=== PATIENT | female | born 1955 | race Caucasian/White ===

== ENCOUNTER 2016-12-18 10:55 | Inpatient (IN) | payer MEDICAID ==
[~2016-12-18] VITALS: Ht 152.4 cm; Wt 124.7 kg
[2016-12-18] MEDS ORDERED: ACETAMINOPHEN 325MG TABLET PO ONE (13:30)
[2016-12-18] MEDS ORDERED: SODIUM CHLORIDE 0.9% 1,000 ML IV ONE (13:30)
[2016-12-18 14:32] LABS: BASOPHILS % 0.3 % (0.0-2.0); EOSINOPHILS % 5.2 % (0.0-5.0); HEMATOCRIT. 34.2 % (36.0-48.0); HEMOGLOBIN. 11.2 g/dL (12.0-16.0); LYMPHOCYTES % 25.2 % (20.0-50.0); MEAN CORPUSCULAR VOLUME 85.4 fL (81.0-99.0); MEAN PLATELET VOLUME 8.4 fl (7.4-10.4); NEUTROPHILS % 60.3 % (40.0-76.0); PLATELET 166 x1000/uL (130-400); RED CELL DISTRIBUTION WIDTH 15.9 % (11.6-14.6)
[2016-12-18 14:40] LABS: CHLORIDE 107 mEq/L (98-107)
[2016-12-18 14:49] LABS: CARBON DIOXIDE 28 mEq/L (21-32)
[2016-12-18 14:51] LABS: INR 1.1
[2016-12-18] MEDS ORDERED: LORAZEPAM 2MG/ML CPJ IV ONE (15:30)
[2016-12-18] MEDS ORDERED: MORPHINE SULFATE 2 MG/ML CPJ (NOT FOR IM USE) IV ONE (15:30)
[2016-12-18] MEDS ORDERED: IPRATROPIUM/ALBUTEROL 0.5-3(2.5)MG/3ML NEB INH PRN (16:00)
[2016-12-18] MEDS ORDERED: MAGNESIUM/ALUMINUM HYDROXIDE/SIMETHICONE 30ML UDC PO PRN (16:00)
[2016-12-18] MEDS ORDERED: GUAIFENESIN 200MG/10ML SUGAR FREE UDC PO PRN (16:00)
[2016-12-18] MEDS ORDERED: ENOXAPARIN 40MG/0.4ML SYR SUBCUT SCH (16:00)
[2016-12-18] MEDS ORDERED: NA PHOS,M-B/NA PHOS,DI-BA ENEMA 118ML PR PRN (16:00)
[2016-12-18] MEDS ORDERED: VANCOMYCIN 1 G PREMIX 200 ML IV SCH (16:00)
[2016-12-18] MEDS ORDERED: TRAMADOL 50MG TABLET PO PRN (16:00)
[2016-12-18] MEDS ORDERED: NITROGLYCERIN 0.4MG TABLET SL SL PRN (16:00)
[2016-12-18] MEDS ORDERED: LORAZEPAM 2MG/ML CPJ IV PRN (16:00)
[2016-12-18] MEDS ORDERED: DEXTROSE 50% WATER 50ML SYRINGE IV PRN (16:00)
[2016-12-18] MEDS ORDERED: CLONIDINE 0.1MG TABLET PO PRN (16:00)
[2016-12-18] MEDS ORDERED: PIPERACILLIN/TAZ 3.375G PREMIX 50 ML IV SCH (16:00)
[2016-12-18] MEDS ORDERED: DIPHENHYDRAMINE 50MG/ML VIAL IV PRN (16:00)
[2016-12-18] MEDS ORDERED: DOCUSATE SODIUM 100MG CAPSULE PO PRN (16:00)
[2016-12-18] MEDS ORDERED: ONDANSETRON HCL 4MG/2ML VIAL IV PRN (16:00)
[2016-12-18] MEDS ORDERED: ACETAMINOPHEN 325MG TABLET PO PRN (16:00)
[2016-12-18] MEDS: BLOOD SUGAR DIAGNOSTIC STRIP TEST SCH ×2 (17:00→21:00)
[2016-12-18] MEDS ORDERED: POTASSIUM CHLORIDE 20MEQ TABLET SR PO NR (17:06)
[2016-12-18] MEDS ORDERED: PIPERACILLIN/TAZ 3.375G PREMIX 50 ML IV NR (17:08)
[2016-12-18] MEDS ORDERED: ENOXAPARIN 40MG/0.4ML SYR SUBCUT NR (17:15)
[2016-12-18] MEDS ORDERED: VANCOMYCIN 2,000 MG in DEXT 5% WATER 500 ML IV NR (17:15)
[2016-12-18] MEDS: LISINOPRIL 20MG TABLET PO SCH (17:34)
[2016-12-18] MEDS: METOPROLOL TARTRATE 25MG TABLET PO SCH (17:36)
[2016-12-18] MEDS: INSULIN LISPRO 100 UNITS/ML SUBCUT SCH ×2 (18:20→21:00)
[2016-12-18] MEDS: KETOROLAC 15MG/ML VIAL IV PRN (21:18)
[2016-12-19] MEDS ORDERED: ZOLPIDEM TARTRATE 5MG TABLET PO PRN (00:51)
[2016-12-19 01:00] VITALS: BP 124/64
[2016-12-19] MEDS ORDERED: PIPERACILLIN/TAZ 3.375G PREMIX 50 ML IV SCH (02:00)
[2016-12-19 04:00] VITALS: BP 136/73
[2016-12-19] MEDS ORDERED: ASCO500C6 PO (07:16)
[2016-12-19] MEDS ORDERED: DILT120C11 PO (07:18)
[2016-12-19] MEDS ORDERED: DUONEB3 ML INH (07:18)
[2016-12-19] MEDS ORDERED: PROT40 PO (07:18)
[2016-12-19] MEDS ORDERED: LEVVL SQ (07:19)
[2016-12-19] MEDS: INSULIN LISPRO 100 UNITS/ML SUBCUT SCH ×2 (07:40→12:40)
[2016-12-19] MEDS: BLOOD SUGAR DIAGNOSTIC STRIP TEST SCH ×2 (07:46→11:41)
[2016-12-19 08:00] VITALS: BP 163/75
[2016-12-19] MEDS: LISINOPRIL 20MG TABLET PO SCH (08:25)
[2016-12-19] MEDS: METOPROLOL TARTRATE 25MG TABLET PO SCH (08:26)
[2016-12-19] MEDS: NYSTATIN POWDER 15GM TOP SCH ×4 (08:26→17:00)
[2016-12-19] MEDS: KETOROLAC 15MG/ML VIAL IV PRN (08:36)
[2016-12-19] MEDS ORDERED: FAMOTIDINE 20MG/2ML VIAL IV SCH (09:00)
[2016-12-19] MEDS ORDERED: ENOXAPARIN 40MG/0.4ML SYR SUBCUT SCH ×2 (09:00)
[2016-12-19] MEDS ORDERED: VANCOMYCIN 1500MG in DEXTROSE 5% WATER 250ML IV SCH (09:00)
[2016-12-19] MEDS ORDERED: ZINC SULFATE 220 MG ( 50 ) CAPSULE PO SCH (09:00)
[2016-12-19 09:54] VITALS: BP 143/75
[2016-12-19 12:00] VITALS: BP 136/72
[2016-12-19 15:36] VITALS: BP 136/72
== END 2016-12-19 19:10 | DRG 383 ==
LOC: ER 11:38 → EDBEDREQSVC 17:02 → EDBEDREQTM 17:02 → EDBEDREQ 17:02 → ENRESERV 19:56 → CANRESERV 19:56 → ENRESERV 22:28 → 8WST 23:25
PROVIDERS: ADMIT Internal Medicine; ATTEND Internal Medicine
DX: L03.116 Cellulitis of left lower limb (principal); E44.0 Moderate protein-calorie malnutrition; L03.313 Cellulitis of chest wall; Z68.43 Body mass index [BMI] 50.0-59.9, adult; I10 Essential (primary) hypertension; L03.111 Cellulitis of right axilla; E11.9 Type 2 diabetes mellitus without complications; J44.9 Chronic obstructive pulmonary disease, unspecified; L03.115 Cellulitis of right lower limb; Z88.6 Allergy status to analgesic agent; E66.01 Morbid (severe) obesity due to excess calories; D63.8 Anemia in other chronic diseases classified elsewhere; I87.8 Other specified disorders of veins; E87.6 Hypokalemia; Z91.81 History of falling
CPT/HCPCS: 36415; 71010; 80053; 82962; 83036; 83605; 83880; 85025; 85610; 87040; 93005; 93970; 94640; 96361; 96365; 96367; 96375; 99285; J1200; J1650; J1885; J2060; J2270; J2405; J2543; J3370; J3490; J7030; J7040; J7060; J7620

== ENCOUNTER 2017-01-21 14:25 | Inpatient (IN) | payer MEDICAID ==
[~2017-01-21] VITALS: Ht 162.6 cm; Wt 117.0 kg
[~2017-01-21 14:25] MED LIST: ASCO500C6 PO; DILT120C11 PO; DUONEB3 ML INH; LEVVL SQ; PROT40 PO
[2017-01-21] MEDS ORDERED: SODIUM CHLORIDE 0.9% 1,000 ML IV ONE (18:30)
[2017-01-21] MEDS ORDERED: ONDANSETRON HCL 4MG/2ML VIAL IV STA (18:30)
[2017-01-21] MEDS ORDERED: MORPHINE SULFATE 4 MG/ML CPJ (NOT FOR IM USE) IV STA (18:50)
[2017-01-21 19:04] LABS: BASOPHILS % 0.9 % (0.0-2.0); EOSINOPHILS % 2.9 % (0.0-5.0); HEMATOCRIT. 38.9 % (36.0-48.0); HEMOGLOBIN. 12.6 g/dL (12.0-16.0); LYMPHOCYTES % 19.1 % (20.0-50.0); MEAN CORPUSCULAR HEMOGLOBIN 28.1 pg (28.0-32.0); MEAN CORPUSCULAR VOLUME 86.6 fL (81.0-99.0); MEAN PLATELET VOLUME 8.7 fl (7.4-10.4); MONOCYTES % 12.3 % (2.0-8.0); NEUTROPHILS % 64.8 % (40.0-76.0); PLATELET 106 x1000/uL (130-400); RED CELL DISTRIBUTION WIDTH 16.3 % (11.6-14.6)
[2017-01-21 19:12] LABS: CARBON DIOXIDE 30 mEq/L (21-32); CHLORIDE 105 mEq/L (98-107)
[2017-01-21] MEDS ORDERED: MORPHINE SULFATE 2 MG/ML CPJ (NOT FOR IM USE) IV NR (20:53)
[2017-01-21 21:20] LABS: CLARITY URINE CLOUDY (CLEAR); COLOR URINE DARK YELLOW (YELLOW); GLUCOSE URINE NEGATIVE (NEGATIVE); KETONES URINE TRACE (NEGATIVE); LEUKOCYTE ESTERASE URINE TRACE (NEGATIVE); NITRITE URINE POSITIVE (NEGATIVE); OCCULT BLOOD URINE NEGATIVE (NEGATIVE); PROTEIN URINE 4+ (NEGATIVE); SPECIFIC GRAVITY URINE 1.033 (1.005-1.030)
[2017-01-21] MEDS ORDERED: ENOXAPARIN 40MG/0.4ML SYR SUBCUT SCH (22:00)
[2017-01-21] MEDS ORDERED: LORAZEPAM 2MG/ML CPJ IV PRN (22:00)
[2017-01-21] MEDS ORDERED: DOCUSATE SODIUM 100MG CAPSULE PO PRN (22:00)
[2017-01-21] MEDS ORDERED: GUAIFENESIN 200MG/10ML SUGAR FREE UDC PO PRN (22:00)
[2017-01-21] MEDS ORDERED: ACETAMINOPHEN 325MG TABLET PO PRN (22:00)
[2017-01-21] MEDS ORDERED: MAGNESIUM/ALUMINUM HYDROXIDE/SIMETHICONE 30ML UDC PO PRN (22:00)
[2017-01-21] MEDS ORDERED: CLONIDINE 0.1MG TABLET PO PRN (22:00)
[2017-01-21] MEDS ORDERED: NITROGLYCERIN 0.4MG TABLET SL SL PRN (22:00)
[2017-01-21] MEDS ORDERED: IPRATROPIUM/ALBUTEROL 0.5-3(2.5)MG/3ML NEB INH PRN (22:00)
[2017-01-21] MEDS ORDERED: LEVOFLOXACIN 500MG PREMIX 100 ML IV SCH (22:00)
[2017-01-21] MEDS ORDERED: ONDANSETRON HCL 4MG/2ML VIAL IV PRN (22:00)
[2017-01-21] MEDS ORDERED: DIPHENHYDRAMINE 50MG/ML VIAL IV PRN (22:00)
[2017-01-21] MEDS ORDERED: TRAMADOL 50MG TABLET PO PRN (22:21)
[2017-01-21] MEDS ORDERED: KETOROLAC 15MG/ML VIAL IV PRN (22:30)
[2017-01-21] MEDS ORDERED: NA PHOS,M-B/NA PHOS,DI-BA ENEMA 118ML PR PRN (22:30)
[2017-01-21] MEDS ORDERED: ZOLPIDEM TARTRATE 5MG TABLET PO PRN (22:30)
[2017-01-22] MEDS ORDERED: DEXTROSE 50% WATER 50ML SYRINGE IV PRN (00:29)
[2017-01-22 02:00] VITALS: BP 149/86
[2017-01-22 04:00] VITALS: BP 142/74
[2017-01-22] MEDS ORDERED: LEVOFLOXACIN 500MG PREMIX 100 ML IV SCH (07:00)
[2017-01-22] MEDS ORDERED: KETOROLAC 30MG/ML VIAL ONE (07:14)
[2017-01-22] MEDS: INSULIN LISPRO 100 UNITS/ML SUBCUT SCH ×4 (07:50→21:00)
[2017-01-22 08:00] VITALS: BP 146/87
[2017-01-22] MEDS ORDERED: CEFTRIAXONE 1 G PREMIX 50 ML IV SCH ×4 (08:00→10:00)
[2017-01-22] MEDS ORDERED: INSULIN LISPRO 100 UNITS/ML SUBCUT SCH (08:20)
[2017-01-22] MEDS ORDERED: LISINOPRIL 20MG TABLET PO SCH (09:00)
[2017-01-22] MEDS ORDERED: ENOXAPARIN 40MG/0.4ML SYR SUBCUT SCH (09:00)
[2017-01-22] MEDS ORDERED: BLOOD SUGAR DIAGNOSTIC STRIP TEST SCH (09:00)
[2017-01-22 10:30] LABS: *AMPHETAMINES SCREEN URINE NEGATIVE (NEGATIVE); *BARBITURATES SCREEN URINE NEGATIVE (NEGATIVE); *BENZODIAZEPINES SCREEN URINE NEGATIVE (NEGATIVE); *COCAINE SCREEN URINE NEGATIVE (NEGATIVE); CANNABINOID URINE SCREEN NEGATIVE (NEGATIVE); METHADONE URINE SCREEN NEGATIVE (NEGATIVE); OPIATES URINE SCREEN NEGATIVE (NEGATIVE); PHENCYCLIDINE URINE SCREEN NEGATIVE (NEGATIVE)
[2017-01-22 12:00] VITALS: BP 158/82
[2017-01-22] MEDS: BLOOD SUGAR DIAGNOSTIC STRIP TEST SCH ×3 (12:47→21:00)
[2017-01-22] MEDS: TRAMADOL 50MG TABLET PO PRN ×2 (13:10→21:21)
[2017-01-22] MEDS ORDERED: HYDROCODONE/ACETAMINOPHEN 5/325MG TABLET PO PRN (13:15)
[2017-01-22 16:00] VITALS: BP 157/82
[2017-01-22 20:00] VITALS: BP 130/61
[2017-01-22] MEDS ORDERED: NITROFURANTOIN 100MG M/M CAPSULE PO SCH (21:00)
[2017-01-23] VITALS: BP 134/70
[2017-01-23] MEDS: BLOOD SUGAR DIAGNOSTIC STRIP TEST SCH ×3 (07:20→17:20)
[2017-01-23] MEDS: INSULIN LISPRO 100 UNITS/ML SUBCUT SCH ×3 (07:50→17:41)
[2017-01-23 08:00] VITALS: BP 144/90
[2017-01-23] MEDS ORDERED: LISINOPRIL 20MG TABLET PO SCH (09:00)
[2017-01-23] MEDS ORDERED: CEFTRIAXONE 1 G PREMIX 50 ML IV SCH (10:00)
[2017-01-23] MEDS ORDERED: LEVOFLOXACIN 500MG TABLET PO SCH (11:00)
[2017-01-23 12:00] VITALS: BP 144/90
[2017-01-23] MEDS: TRAMADOL 50MG TABLET PO PRN (15:48)
[2017-01-23 16:00] VITALS: BP 181/92
[2017-01-23 16:21] VITALS: BP 144/90
== END 2017-01-23 19:25 | DRG 463 ==
LOC: ER 14:30 → 6EST 21:58 → ENRESERV 22:52 → ER 01-22 01:00
PROVIDERS: ADMIT Internal Medicine; ATTEND Internal Medicine
DX: N39.0 Urinary tract infection, site not specified (principal); E44.0 Moderate protein-calorie malnutrition; E66.01 Morbid (severe) obesity due to excess calories; N64.4 Mastodynia; E11.9 Type 2 diabetes mellitus without complications; I10 Essential (primary) hypertension; J44.9 Chronic obstructive pulmonary disease, unspecified; Z68.41 Body mass index [BMI] 40.0-44.9, adult; Z88.5 Allergy status to narcotic agent; Z79.4 Long term (current) use of insulin; Z79.899 Other long term (current) drug therapy; Z86.718 Personal history of other venous thrombosis and embolism; Z85.9 Personal history of malignant neoplasm, unspecified
CPT/HCPCS: 36415; 80053; 80305; 81001; 82962; 85025; 96361; 96374; 99285; C1893; J0696; J1650; J1885; J1956; J2270; J2405; J7030; J7050

== ENCOUNTER 2017-03-17 16:48 | Inpatient (IN) | payer MEDICAID ==
[~2017-03-17] VITALS: Ht 160 cm; Wt 127.0 kg
[2017-03-17] MEDS ORDERED: ALBUTEROL (0.083%) 2.5MG/3ML NEB HHN STA (18:02)
[2017-03-17] MEDS ORDERED: IPRATROPIUM BROMIDE (0.02%) 0.5MG/2.5ML NEB HHN STA (18:02)
[2017-03-17] MEDS ORDERED: METHYLPREDNISOLONE SOD SUCC 125 MG/2 ML VIAL IV STA (18:02)
[2017-03-17] MEDS ORDERED: MAGNESIUM 2 G PREMIX 50 ML IV ONE (18:15)
[2017-03-17 19:11] LABS: BASOPHILS % 0.7 % (0.0-2.0); EOSINOPHILS % 1.9 % (0.0-5.0); HEMATOCRIT. 32.6 % (36.0-48.0); HEMOGLOBIN. 10.4 g/dL (12.0-16.0); LYMPHOCYTES % 11.5 % (20.0-50.0); MEAN CORPUSCULAR HEMOGLOBIN 27.3 pg (28.0-32.0); MEAN CORPUSCULAR VOLUME 85.2 fL (81.0-99.0); MEAN PLATELET VOLUME 7.9 fl (7.4-10.4); MONOCYTES % 8.6 % (2.0-8.0); NEUTROPHILS % 77.3 % (40.0-76.0); PLATELET 160 x1000/uL (130-400); RED BLOOD CELL COUNT 3.83 mill/uL (4.2-5.4); RED CELL DISTRIBUTION WIDTH 17.7 % (11.6-14.6)
[2017-03-17 19:15] LABS: CHLORIDE 104 mEq/L (98-107); INR 1.5; PROTHROMBIN TIME 15.1 sec (9.4-11.6)
[2017-03-17 19:19] LABS: CARBON DIOXIDE 31 mEq/L (21-32)
[2017-03-17 19:25] LABS: TROPONIN I < 0.02 ng/mL (0.00-0.04)
[2017-03-17 19:28] LABS: BG BASE EXCESS 2.2 mmol/L (-2.0-2.0); BG BILEVEL POS AIRWAY PRESSURE 15/5; BG CARBOXYHEMOGLOBIN 0.2 % (0.5-1.5); BG DEOXYHEMOGLOBIN 19.6 % (0.0-5.0); BG FRACTION INSPIRED OXYGEN 40; BG HCO3 ACT 29.3 mmol/L (22.0-26.0); BG METHEMOGLOBIN 0.6 % (0.0-1.5); BG OXYGEN SATURATION 80.2 % (92.0-98.5); BG OXYHEMOGLOBIN 79.6 % (94.0-97.0); BG PCO2 58.4 mmHg (35.0-45.0); BG PH 7.319 (7.350-7.450); BG PO2 49.9 mmHg (75.0-100.0); BG SAMPLE SITE RIGHT RADIAL; BG TOTAL HEMOGLOBIN 11.2 g/dL (12.0-18.0); BG VENT MODE MASK - BIPAP; BG VENT RATE 20 set
[2017-03-17] MEDS ORDERED: PIPERACILLIN/TAZ 3.375G PREMIX 50 ML IV ONE (20:00)
[2017-03-17] MEDS ORDERED: MAGNESIUM/ALUMINUM HYDROXIDE/SIMETHICONE 30ML UDC PO PRN (20:30)
[2017-03-17] MEDS ORDERED: DOCUSATE SODIUM 100MG CAPSULE PO PRN (20:30)
[2017-03-17] MEDS ORDERED: ENOXAPARIN 40MG/0.4ML SYR SUBCUT SCH (20:30)
[2017-03-17] MEDS ORDERED: ONDANSETRON HCL 4MG/2ML VIAL IV PRN (20:30)
[2017-03-17] MEDS ORDERED: NA PHOS,M-B/NA PHOS,DI-BA ENEMA 118ML PR PRN (20:30)
[2017-03-17] MEDS ORDERED: ACET-2178 PO (21:49)
[2017-03-17] MEDS ORDERED: HYDR-4133 PO (21:49)
[2017-03-17] MEDS ORDERED: TRAM50TA3 PO (21:49)
[2017-03-17 23:03] VITALS: BP 171/95
[2017-03-17 23:25] VITALS: BP 171/95
[2017-03-18] VITALS (13 sets, daily range): BP systolic 120–173; BP diastolic 53–101
[2017-03-18] MEDS ORDERED: LEVOFLOXACIN 500MG PREMIX 100 ML IV SCH
[2017-03-18 02:38] LABS: CREATINE KINASE 26 IU/L (26-192); TROPONIN I < 0.02 ng/mL (0.00-0.04)
[2017-03-18] MEDS: CLONIDINE 0.1MG TABLET PO PRN (06:53)
[2017-03-18 08:00] LABS: CARBON DIOXIDE 29 mEq/L (21-32); CHLORIDE 104 mEq/L (98-107); CREATINE KINASE 23 IU/L (26-192)
[2017-03-18 08:02] LABS: CREATINE KINASE MB FRACTION 0.8 ng/mL (0.5-3.6); TROPONIN I < 0.02 ng/mL (0.00-0.04)
[2017-03-18 08:09] LABS: MEAN CORPUSCULAR HEMOGLOBIN 27.3 pg (28.0-32.0); MEAN CORPUSCULAR VOLUME 84.3 fL (81.0-99.0); MEAN PLATELET VOLUME 8.2 fl (7.4-10.4); PLATELET 156 x1000/uL (130-400); RED BLOOD CELL COUNT 4.03 mill/uL (4.2-5.4); RED CELL DISTRIBUTION WIDTH 17.4 % (11.6-14.6)
[2017-03-18] MEDS: IPRATROPIUM/ALBUTEROL 0.5-3(2.5)MG/3ML NEB INH SCH ×3 (08:12→20:51)
[2017-03-18] MEDS: ENOXAPARIN 40MG/0.4ML SYR SUBCUT SCH ×2 (08:38→20:25)
[2017-03-18] MEDS: AMLODIPINE 10MG TABLET PO SCH ×2 (08:39→08:42)
[2017-03-18] MEDS ORDERED: FUROSEMIDE 40MG/4ML VIAL IV SCH (09:00)
[2017-03-18] MEDS: MORPHINE SULFATE 2 MG/ML CPJ (NOT FOR IM USE) IV PRN ×3 (10:13→18:07)
[2017-03-18] MEDS: METHYLPREDNISOLONE SOD SUCC 125 MG/2 ML VIAL IV SCH ×2 (12:48→20:18)
[2017-03-18 12:54] LABS: BG BASE EXCESS 2.5 mmol/L (-2.0-2.0); BG BILEVEL POS AIRWAY PRESSURE 15/5; BG CARBOXYHEMOGLOBIN 0.3 % (0.5-1.5); BG DEOXYHEMOGLOBIN 3.3 % (0.0-5.0); BG FRACTION INSPIRED OXYGEN 40; BG HCO3 ACT 30.5 mmol/L (22.0-26.0); BG METHEMOGLOBIN 0.2 % (0.0-1.5); BG OXYGEN SATURATION 96.7 % (92.0-98.5); BG OXYHEMOGLOBIN 96.2 % (94.0-97.0); BG PCO2 64.8 mmHg (35.0-45.0); BG PO2 96.8 mmHg (75.0-100.0); BG SAMPLE SITE LEFT RADIAL; BG TOTAL HEMOGLOBIN 11.5 g/dL (12.0-18.0); BG VENT MODE MASK - BIPAP; BG VENT RATE 14 set
[2017-03-18] MEDS: BUDESONIDE 0.5MG/2ML NEB HHN SCH ×2 (13:15→20:51)
[2017-03-18] MEDS ORDERED: DEXTROSE 50% WATER 50ML SYRINGE IV PRN ×2 (14:15→15:15)
[2017-03-18] MEDS ORDERED: VANCOMYCIN 2,000 MG in DEXT 5% WATER 500 ML IV SCH (15:00)
[2017-03-18 15:15] LABS: CLARITY URINE CLEAR (CLEAR); COLOR URINE YELLOW (YELLOW); KETONES URINE NEGATIVE (NEGATIVE); LEUKOCYTE ESTERASE URINE NEGATIVE (NEGATIVE); NITRITE URINE NEGATIVE (NEGATIVE); OCCULT BLOOD URINE NEGATIVE (NEGATIVE); PROTEIN URINE 1+ (NEGATIVE); SPECIFIC GRAVITY URINE 1.014 (1.005-1.030); UROBILINOGEN URINE 0.2 E.U./dL (0.2-1.0)
[2017-03-18] MEDS: PIPERACILLIN/TAZ 3.375G PREMIX 50 ML IV SCH ×2 (15:26→20:18)
[2017-03-18] MEDS ORDERED: VANCOMYCIN 2,000 MG in DEXT 5% WATER 500 ML IV NR (15:30)
[2017-03-18 16:19] LABS: PLATELET ESTIMATE NORMAL
[2017-03-18] MEDS: BLOOD SUGAR DIAGNOSTIC STRIP TEST SCH ×2 (17:12→20:25)
[2017-03-18] MEDS: FUROSEMIDE 40MG/4ML VIAL IVP SCH (17:14)
[2017-03-18] MEDS: INSULIN LISPRO 100 UNITS/ML SUBCUT SCH ×2 (17:18→20:29)
[2017-03-18 17:22] LABS: AMMONIA 90 uMol/L (<32)
[2017-03-18 17:45] LABS: HEPATITIS B SURFACE ANTIGEN NEGATIVE
[2017-03-18] MEDS ORDERED: INSULIN LISPRO 100 UNITS/ML SUBCUT SCH (18:00)
[2017-03-18 18:13] LABS: HEPATITIS B CORE AB IGM NEGATIVE
[2017-03-18 18:14] LABS: HEPATITIS A AB IGM NEGATIVE (NEGATIVE)
[2017-03-19] VITALS (11 sets, daily range): BP systolic 132–171; BP diastolic 70–93
[2017-03-19] MEDS: MORPHINE SULFATE 2 MG/ML CPJ (NOT FOR IM USE) IV PRN ×2 (00:24→20:23)
[2017-03-19] MEDS: IPRATROPIUM/ALBUTEROL 0.5-3(2.5)MG/3ML NEB INH SCH ×4 (01:30→21:08)
[2017-03-19] MEDS: PIPERACILLIN/TAZ 3.375G PREMIX 50 ML IV SCH ×4 (01:41→20:20)
[2017-03-19] MEDS ORDERED: VANCOMYCIN 1 G PREMIX 200 ML IV SCH (02:00)
[2017-03-19] MEDS: VANCOMYCIN 1250MG in DEXTROSE 5% WATER 250ML IV SCH ×2 (02:18→17:28)
[2017-03-19] MEDS: METHYLPREDNISOLONE SOD SUCC 125 MG/2 ML VIAL IV SCH ×3 (04:10→20:32)
[2017-03-19 06:39] LABS: BG BASE EXCESS 3.9 mmol/L (-2.0-2.0); BG BILEVEL POS AIRWAY PRESSURE 15/5; BG CARBOXYHEMOGLOBIN 0.3 % (0.5-1.5); BG DEOXYHEMOGLOBIN 3.6 % (0.0-5.0); BG FRACTION INSPIRED OXYGEN 35; BG METHEMOGLOBIN 0.5 % (0.0-1.5); BG OXYGEN SATURATION 96.4 % (92.0-98.5); BG OXYHEMOGLOBIN 95.6 % (94.0-97.0); BG PCO2 52.4 mmHg (35.0-45.0); BG PH 7.376 (7.350-7.450); BG PO2 88.3 mmHg (75.0-100.0); BG SAMPLE SITE LEFT RADIAL; BG TOTAL HEMOGLOBIN 11.1 g/dL (12.0-18.0); BG VENT MODE MASK - BIPAP
[2017-03-19] MEDS: CLONIDINE 0.1MG TABLET PO PRN (06:50)
[2017-03-19] MEDS: BLOOD SUGAR DIAGNOSTIC STRIP TEST SCH ×4 (07:30→20:23)
[2017-03-19] MEDS: BUDESONIDE 0.5MG/2ML NEB HHN SCH ×2 (07:53→21:08)
[2017-03-19] MEDS: INSULIN LISPRO 100 UNITS/ML SUBCUT SCH ×4 (08:00→22:03)
[2017-03-19] MEDS: FUROSEMIDE 40MG/4ML VIAL IVP SCH ×2 (10:28→17:29)
[2017-03-19] MEDS: ENOXAPARIN 40MG/0.4ML SYR SUBCUT SCH (10:28)
[2017-03-19] MEDS: AMLODIPINE 10MG TABLET PO SCH (10:29)
[2017-03-19 13:18] LABS: HEMATOCRIT. 33.7 % (36.0-48.0); HEMOGLOBIN. 10.9 g/dL (12.0-16.0); MEAN CORPUSCULAR HEMOGLOBIN 27.2 pg (28.0-32.0); MEAN PLATELET VOLUME 7.5 fl (7.4-10.4); PLATELET 139 x1000/uL (130-400); RED BLOOD CELL COUNT 4.01 mill/uL (4.2-5.4); RED CELL DISTRIBUTION WIDTH 17.8 % (11.6-14.6)
[2017-03-19 13:26] LABS: CHLORIDE 102 mEq/L (98-107)
[2017-03-19 13:31] LABS: CARBON DIOXIDE 30 mEq/L (21-32)
[2017-03-19 14:20] LABS: PLATELET ESTIMATE NORMAL
[2017-03-19 16:49] LABS: INR 1.4; PROTHROMBIN TIME 14.8 sec (9.4-11.6)
[2017-03-19] MEDS: LACTULOSE 20G/30ML UDC PO SCH (17:29)
[2017-03-19] MEDS: ACETAMINOPHEN 325MG TABLET PO PRN (17:29)
[2017-03-19] MEDS: MICONAZOLE NITRATE 2% OINT 71GM TOP SCH (20:24)
[2017-03-20] VITALS (12 sets, daily range): BP systolic 150–173; BP diastolic 72–108
[2017-03-20] MEDS: IPRATROPIUM/ALBUTEROL 0.5-3(2.5)MG/3ML NEB INH SCH ×4 (01:22→20:58)
[2017-03-20] MEDS: PIPERACILLIN/TAZ 3.375G PREMIX 50 ML IV SCH ×4 (03:32→21:38)
[2017-03-20] MEDS: VANCOMYCIN 1250MG in DEXTROSE 5% WATER 250ML IV SCH (03:54)
[2017-03-20] MEDS: MORPHINE SULFATE 2 MG/ML CPJ (NOT FOR IM USE) IV PRN ×2 (04:00→21:40)
[2017-03-20] MEDS: METHYLPREDNISOLONE SOD SUCC 125 MG/2 ML VIAL IV SCH (04:35)
[2017-03-20 06:25] LABS: HEMOGLOBIN. 11.5 g/dL (12.0-16.0); MEAN CORPUSCULAR HEMOGLOBIN 27.4 pg (28.0-32.0); MEAN CORPUSCULAR VOLUME 83.7 fL (81.0-99.0); MEAN PLATELET VOLUME 7.9 fl (7.4-10.4); PLATELET 135 x1000/uL (130-400); RED BLOOD CELL COUNT 4.18 mill/uL (4.2-5.4); RED CELL DISTRIBUTION WIDTH 17.7 % (11.6-14.6)
[2017-03-20] MEDS: FUROSEMIDE 40MG/4ML VIAL IVP SCH ×2 (06:27→17:45)
[2017-03-20] MEDS: BUDESONIDE 0.5MG/2ML NEB HHN SCH (07:34)
[2017-03-20 07:42] LABS: CHLORIDE 103 mEq/L (98-107)
[2017-03-20] MEDS: BLOOD SUGAR DIAGNOSTIC STRIP TEST SCH ×4 (07:51→21:40)
[2017-03-20 08:05] LABS: CARBON DIOXIDE 29 mEq/L (21-32)
[2017-03-20] MEDS: LACTULOSE 20G/30ML UDC PO SCH (11:18)
[2017-03-20] MEDS: MICONAZOLE NITRATE 2% OINT 71GM TOP SCH ×2 (11:19→21:38)
[2017-03-20] MEDS: AMLODIPINE 10MG TABLET PO SCH (11:19)
[2017-03-20] MEDS: INSULIN LISPRO 100 UNITS/ML SUBCUT SCH ×4 (11:27→22:04)
[2017-03-20] MEDS: ACETAMINOPHEN 325MG TABLET PO PRN (12:33)
[2017-03-20] MEDS: GUAIFENESIN 200MG/10ML SUGAR FREE UDC PO PRN (12:33)
[2017-03-20] MEDS: CLONIDINE 0.1MG TABLET PO PRN (12:34)
[2017-03-20 13:44] LABS: PLATELET ESTIMATE NORMAL
[2017-03-20] MEDS: METHYLPREDNISOLONE SOD SUCC 40 MG/ML VIAL IV SCH ×2 (14:48→21:37)
[2017-03-21] VITALS (12 sets, daily range): BP systolic 144–181; BP diastolic 68–98
[2017-03-21] MEDS: BUDESONIDE 0.5MG/2ML NEB HHN SCH ×3 (01:26→20:35)
[2017-03-21] MEDS: IPRATROPIUM/ALBUTEROL 0.5-3(2.5)MG/3ML NEB INH SCH ×4 (01:26→20:36)
[2017-03-21] MEDS: PIPERACILLIN/TAZ 3.375G PREMIX 50 ML IV SCH ×4 (01:57→20:39)
[2017-03-21] MEDS: CLONIDINE 0.1MG TABLET PO PRN (02:48)
[2017-03-21] MEDS: VANCOMYCIN 1500MG in DEXTROSE 5% WATER 250ML IV SCH (05:15)
[2017-03-21] MEDS: METHYLPREDNISOLONE SOD SUCC 40 MG/ML VIAL IV SCH (05:15)
[2017-03-21] MEDS: FUROSEMIDE 40MG/4ML VIAL IVP SCH ×2 (06:17→17:31)
[2017-03-21] MEDS: MORPHINE SULFATE 2 MG/ML CPJ (NOT FOR IM USE) IV PRN ×2 (06:37→12:31)
[2017-03-21] MEDS: BLOOD SUGAR DIAGNOSTIC STRIP TEST SCH ×4 (08:14→20:44)
[2017-03-21] MEDS: LACTULOSE 20G/30ML UDC PO SCH (08:32)
[2017-03-21] MEDS: AMLODIPINE 10MG TABLET PO SCH (08:33)
[2017-03-21] MEDS: INSULIN LISPRO 100 UNITS/ML SUBCUT SCH ×4 (08:34→20:53)
[2017-03-21] MEDS: MICONAZOLE NITRATE 2% OINT 71GM TOP SCH ×2 (08:35→20:39)
[2017-03-21] MEDS: PREDNISONE 20MG TABLET PO SCH (17:32)
[2017-03-22] VITALS (12 sets, daily range): BP systolic 134–183; BP diastolic 60–100
[2017-03-22] MEDS: VANCOMYCIN 1500MG in DEXTROSE 5% WATER 250ML IV SCH ×2 (00:17→17:39)
[2017-03-22] MEDS: IPRATROPIUM/ALBUTEROL 0.5-3(2.5)MG/3ML NEB INH SCH ×4 (01:13→21:40)
[2017-03-22] MEDS: PIPERACILLIN/TAZ 3.375G PREMIX 50 ML IV SCH ×4 (03:08→21:26)
[2017-03-22] MEDS: FUROSEMIDE 40MG/4ML VIAL IVP SCH ×2 (06:47→17:40)
[2017-03-22] MEDS: BLOOD SUGAR DIAGNOSTIC STRIP TEST SCH ×4 (07:20→21:28)
[2017-03-22] MEDS: INSULIN LISPRO 100 UNITS/ML SUBCUT SCH ×5 (07:20→21:41)
[2017-03-22] MEDS: BUDESONIDE 0.5MG/2ML NEB HHN SCH ×2 (08:23→21:42)
[2017-03-22] MEDS: LACTULOSE 20G/30ML UDC PO SCH (08:33)
[2017-03-22] MEDS: AMLODIPINE 10MG TABLET PO SCH (08:34)
[2017-03-22] MEDS: PREDNISONE 20MG TABLET PO SCH (08:34)
[2017-03-22] MEDS: MICONAZOLE NITRATE 2% OINT 71GM TOP SCH ×2 (08:37→21:27)
[2017-03-22] MEDS: CLONIDINE 0.1MG TABLET PO PRN (21:27)
[2017-03-22] MEDS: HYDROCODONE/ACETAMINOPHEN 10/325MG TABLET PO PRN (21:49)
[2017-03-23] VITALS (13 sets, daily range): BP systolic 140–199; BP diastolic 61–108
[2017-03-23] MEDS: PIPERACILLIN/TAZ 3.375G PREMIX 50 ML IV SCH ×4 (02:14→20:00)
[2017-03-23] MEDS: IPRATROPIUM/ALBUTEROL 0.5-3(2.5)MG/3ML NEB INH SCH ×4 (02:59→22:17)
[2017-03-23] MEDS: BLOOD SUGAR DIAGNOSTIC STRIP TEST SCH ×4 (07:32→21:00)
[2017-03-23] MEDS: FUROSEMIDE 40MG/4ML VIAL IVP SCH ×2 (07:35→16:23)
[2017-03-23 07:46] LABS: HEMATOCRIT. 35.4 % (36.0-48.0); HEMOGLOBIN. 11.1 g/dL (12.0-16.0); MEAN CORPUSCULAR HEMOGLOBIN 26.3 pg (28.0-32.0); MEAN CORPUSCULAR VOLUME 83.8 fL (81.0-99.0); MEAN PLATELET VOLUME 8.4 fl (7.4-10.4); PLATELET 103 x1000/uL (130-400); RED BLOOD CELL COUNT 4.23 mill/uL (4.2-5.4); RED CELL DISTRIBUTION WIDTH 17.5 % (11.6-14.6)
[2017-03-23] MEDS: INSULIN LISPRO 100 UNITS/ML SUBCUT SCH ×4 (08:00→22:04)
[2017-03-23] MEDS: LACTULOSE 20G/30ML UDC PO SCH (08:43)
[2017-03-23] MEDS: PREDNISONE 20MG TABLET PO SCH (08:43)
[2017-03-23] MEDS: AMLODIPINE 10MG TABLET PO SCH (08:44)
[2017-03-23] MEDS: HYDROCODONE/ACETAMINOPHEN 10/325MG TABLET PO PRN ×2 (08:51→16:23)
[2017-03-23] MEDS: CLONIDINE 0.1MG TABLET PO PRN (10:29)
[2017-03-23 11:09] LABS: CHLORIDE 99 mEq/L (98-107)
[2017-03-23 11:22] LABS: CARBON DIOXIDE 40 mEq/L (21-32)
[2017-03-23] MEDS: LOSARTAN POTASSIUM 25 MG TABLET PO SCH (11:33)
[2017-03-23] MEDS: VANCOMYCIN 1500MG in DEXTROSE 5% WATER 250ML IV SCH (11:35)
[2017-03-23] MEDS: BUDESONIDE 0.5MG/2ML NEB HHN SCH ×2 (13:30→22:17)
[2017-03-23] MEDS: HYDRALAZINE HCL 25MG TABLET PO SCH ×2 (13:41→21:47)
[2017-03-23] MEDS: MICONAZOLE NITRATE 2% OINT 71GM TOP SCH ×2 (16:28→21:53)
[2017-03-23 16:51] LABS: PLATELET ESTIMATE DECREASED
[2017-03-24] VITALS (13 sets, daily range): BP systolic 119–185; BP diastolic 51–99
[2017-03-24] MEDS: PIPERACILLIN/TAZ 3.375G PREMIX 50 ML IV SCH ×4 (02:00→20:18)
[2017-03-24] MEDS: CLONIDINE 0.1MG TABLET PO PRN ×2 (03:15→14:10)
[2017-03-24] MEDS: IPRATROPIUM/ALBUTEROL 0.5-3(2.5)MG/3ML NEB INH SCH ×4 (03:17→20:31)
[2017-03-24] MEDS: VANCOMYCIN 1500MG in DEXTROSE 5% WATER 250ML IV SCH ×2 (05:23→23:43)
[2017-03-24] MEDS: HYDRALAZINE HCL 25MG TABLET PO SCH ×3 (05:30→21:06)
[2017-03-24] MEDS: FUROSEMIDE 40MG/4ML VIAL IVP SCH ×2 (06:18→17:21)
[2017-03-24] MEDS: BUDESONIDE 0.5MG/2ML NEB HHN SCH ×2 (08:05→20:31)
[2017-03-24] MEDS: BLOOD SUGAR DIAGNOSTIC STRIP TEST SCH ×4 (08:09→21:00)
[2017-03-24] MEDS: LOSARTAN POTASSIUM 25 MG TABLET PO SCH (08:23)
[2017-03-24] MEDS: AMLODIPINE 10MG TABLET PO SCH (08:23)
[2017-03-24] MEDS: LACTULOSE 20G/30ML UDC PO SCH (08:23)
[2017-03-24] MEDS: PREDNISONE 20MG TABLET PO SCH (08:23)
[2017-03-24] MEDS: INSULIN LISPRO 100 UNITS/ML SUBCUT SCH ×4 (08:24→21:05)
[2017-03-24] MEDS: HYDROCODONE/ACETAMINOPHEN 10/325MG TABLET PO PRN ×2 (09:20→21:04)
[2017-03-24] MEDS: MICONAZOLE NITRATE 2% OINT 71GM TOP SCH (20:19)
[2017-03-25] VITALS (13 sets, daily range): BP systolic 108–143; BP diastolic 40–84
[2017-03-25] MEDS: PIPERACILLIN/TAZ 3.375G PREMIX 50 ML IV SCH ×3 (02:10→14:05)
[2017-03-25] MEDS: IPRATROPIUM/ALBUTEROL 0.5-3(2.5)MG/3ML NEB INH SCH ×4 (02:11→21:00)
[2017-03-25] MEDS: HYDRALAZINE HCL 25MG TABLET PO SCH ×3 (05:17→21:01)
[2017-03-25] MEDS: HYDROCODONE/ACETAMINOPHEN 10/325MG TABLET PO PRN ×2 (05:32→21:00)
[2017-03-25] MEDS: FUROSEMIDE 40MG/4ML VIAL IVP SCH ×2 (06:19→17:49)
[2017-03-25] MEDS: BLOOD SUGAR DIAGNOSTIC STRIP TEST SCH ×4 (07:48→20:48)
[2017-03-25] MEDS: INSULIN LISPRO 100 UNITS/ML SUBCUT SCH ×4 (08:00→20:58)
[2017-03-25] MEDS: LOSARTAN POTASSIUM 25 MG TABLET PO SCH (08:02)
[2017-03-25] MEDS: AMLODIPINE 10MG TABLET PO SCH (08:02)
[2017-03-25] MEDS: LACTULOSE 20G/30ML UDC PO SCH (08:03)
[2017-03-25] MEDS: PREDNISONE 20MG TABLET PO SCH (08:03)
[2017-03-25] MEDS: MICONAZOLE NITRATE 2% OINT 71GM TOP SCH ×2 (08:06→20:52)
[2017-03-25] MEDS: BUDESONIDE 0.5MG/2ML NEB HHN SCH (09:18)
[2017-03-26] VITALS (13 sets, daily range): BP systolic 95–156; BP diastolic 49–76
[2017-03-26] MEDS: IPRATROPIUM/ALBUTEROL 0.5-3(2.5)MG/3ML NEB INH SCH ×4 (02:12→20:29)
[2017-03-26] MEDS: HYDRALAZINE HCL 25MG TABLET PO SCH ×3 (05:51→21:10)
[2017-03-26] MEDS: FUROSEMIDE 40MG/4ML VIAL IVP SCH ×2 (06:25→16:23)
[2017-03-26] MEDS: BLOOD SUGAR DIAGNOSTIC STRIP TEST SCH ×4 (08:29→21:00)
[2017-03-26] MEDS: LACTULOSE 20G/30ML UDC PO SCH (08:36)
[2017-03-26] MEDS: PREDNISONE 20MG TABLET PO SCH (08:37)
[2017-03-26] MEDS: AMLODIPINE 10MG TABLET PO SCH (08:37)
[2017-03-26] MEDS: LOSARTAN POTASSIUM 25 MG TABLET PO SCH (08:41)
[2017-03-26] MEDS: HYDROCODONE/ACETAMINOPHEN 10/325MG TABLET PO PRN (08:42)
[2017-03-26] MEDS: INSULIN LISPRO 100 UNITS/ML SUBCUT SCH ×4 (08:45→21:19)
[2017-03-26] MEDS: MICONAZOLE NITRATE 2% OINT 71GM TOP SCH ×2 (08:57→21:20)
[2017-03-26 16:33] LABS: BG BASE EXCESS 7.1 mmol/L (-2.0-2.0); BG BILEVEL POS AIRWAY PRESSURE 15/5; BG CARBOXYHEMOGLOBIN 0.6 % (0.5-1.5); BG DEOXYHEMOGLOBIN 6.8 % (0.0-5.0); BG FRACTION INSPIRED OXYGEN 35; BG HCO3 ACT 32.4 mmol/L (22.0-26.0); BG METHEMOGLOBIN 0.5 % (0.0-1.5); BG OXYGEN SATURATION 93.1 % (92.0-98.5); BG OXYHEMOGLOBIN 92.1 % (94.0-97.0); BG PCO2 48.8 mmHg (35.0-45.0); BG PO2 69.4 mmHg (75.0-100.0); BG SAMPLE SITE RIGHT RADIAL; BG TOTAL HEMOGLOBIN 12.4 g/dL (12.0-18.0); BG VENT MODE MASK - BIPAP; BG VENT RATE 16 set
[2017-03-27] VITALS (12 sets, daily range): BP systolic 117–140; BP diastolic 46–80
[2017-03-27] MEDS: IPRATROPIUM/ALBUTEROL 0.5-3(2.5)MG/3ML NEB INH SCH ×2 (00:40→20:18)
[2017-03-27] MEDS: HYDRALAZINE HCL 25MG TABLET PO SCH ×3 (05:46→21:38)
[2017-03-27] MEDS: FUROSEMIDE 40MG/4ML VIAL IVP SCH ×2 (06:25→17:57)
[2017-03-27] MEDS: BLOOD SUGAR DIAGNOSTIC STRIP TEST SCH ×4 (07:46→21:54)
[2017-03-27] MEDS: INSULIN LISPRO 100 UNITS/ML SUBCUT SCH ×4 (08:00→22:09)
[2017-03-27] MEDS: GUAIFENESIN 200MG/10ML SUGAR FREE UDC PO PRN (09:16)
[2017-03-27] MEDS: LACTULOSE 20G/30ML UDC PO SCH (09:16)
[2017-03-27] MEDS: AMLODIPINE 10MG TABLET PO SCH (09:17)
[2017-03-27] MEDS: PREDNISONE 20MG TABLET PO SCH (09:17)
[2017-03-27] MEDS: LOSARTAN POTASSIUM 25 MG TABLET PO SCH (09:17)
[2017-03-27] MEDS: ACETAMINOPHEN 325MG TABLET PO PRN ×2 (09:18→20:51)
[2017-03-27] MEDS: MICONAZOLE NITRATE 2% OINT 71GM TOP SCH ×2 (09:22→21:55)
[2017-03-27] MEDS: HYDROCODONE/ACETAMINOPHEN 10/325MG TABLET PO PRN (10:51)
[2017-03-28] VITALS (13 sets, daily range): BP systolic 110–158; BP diastolic 45–82
[2017-03-28] MEDS: IPRATROPIUM/ALBUTEROL 0.5-3(2.5)MG/3ML NEB INH SCH ×4 (02:41→21:26)
[2017-03-28] MEDS: HYDRALAZINE HCL 25MG TABLET PO SCH ×3 (07:02→21:08)
[2017-03-28] MEDS: FUROSEMIDE 40MG/4ML VIAL IVP SCH ×2 (07:02→17:04)
[2017-03-28 07:19] LABS: CARBON DIOXIDE 37 mEq/L (21-32); CHLORIDE 96 mEq/L (98-107)
[2017-03-28 08:00] LABS: BG BASE EXCESS 12.8 mmol/L (-2.0-2.0); BG BILEVEL POS AIRWAY PRESSURE 15/5; BG CARBOXYHEMOGLOBIN 0.7 % (0.5-1.5); BG DEOXYHEMOGLOBIN 3.9 % (0.0-5.0); BG FRACTION INSPIRED OXYGEN 35; BG HCO3 ACT 38.1 mmol/L (22.0-26.0); BG METHEMOGLOBIN 0.1 % (0.0-1.5); BG OXYGEN SATURATION 96.1 % (92.0-98.5); BG OXYHEMOGLOBIN 95.3 % (94.0-97.0); BG PCO2 51.6 mmHg (35.0-45.0); BG PH 7.486 (7.350-7.450); BG PO2 79.9 mmHg (75.0-100.0); BG SAMPLE SITE LEFT RADIAL; BG TOTAL HEMOGLOBIN 12.1 g/dL (12.0-18.0); BG VENT MODE MASK - BIPAP
[2017-03-28] MEDS: INSULIN LISPRO 100 UNITS/ML SUBCUT SCH ×4 (08:00→21:12)
[2017-03-28] MEDS: AMLODIPINE 10MG TABLET PO SCH (08:24)
[2017-03-28] MEDS: PREDNISONE 20MG TABLET PO SCH (08:25)
[2017-03-28] MEDS: LACTULOSE 20G/30ML UDC PO SCH (08:25)
[2017-03-28] MEDS: LOSARTAN POTASSIUM 25 MG TABLET PO SCH (08:25)
[2017-03-28] MEDS: BLOOD SUGAR DIAGNOSTIC STRIP TEST SCH ×4 (08:25→21:11)
[2017-03-28] MEDS: MICONAZOLE NITRATE 2% OINT 71GM TOP SCH ×2 (08:27→21:10)
[2017-03-28] MEDS: ACETAMINOPHEN 325MG TABLET PO PRN ×2 (08:31→14:39)
[2017-03-29] VITALS (12 sets, daily range): BP systolic 117–154; BP diastolic 50–88
[2017-03-29] MEDS: IPRATROPIUM/ALBUTEROL 0.5-3(2.5)MG/3ML NEB INH SCH ×4 (02:08→21:08)
[2017-03-29 06:04] LABS: HEMATOCRIT. 35.4 % (36.0-48.0); HEMOGLOBIN. 11.2 g/dL (12.0-16.0); MEAN CORPUSCULAR HEMOGLOBIN 26.8 pg (28.0-32.0); MEAN CORPUSCULAR VOLUME 84.2 fL (81.0-99.0); MEAN PLATELET VOLUME 9.8 fl (7.4-10.4); PLATELET 160 x1000/uL (130-400); RED CELL DISTRIBUTION WIDTH 18.8 % (11.6-14.6)
[2017-03-29] MEDS: HYDRALAZINE HCL 25MG TABLET PO SCH ×3 (06:37→21:22)
[2017-03-29] MEDS: FUROSEMIDE 40MG/4ML VIAL IVP SCH (06:37)
[2017-03-29] MEDS: BLOOD SUGAR DIAGNOSTIC STRIP TEST SCH ×4 (07:58→21:25)
[2017-03-29] MEDS: INSULIN LISPRO 100 UNITS/ML SUBCUT SCH ×4 (08:00→21:23)
[2017-03-29] MEDS: LACTULOSE 20G/30ML UDC PO SCH (08:31)
[2017-03-29] MEDS: PREDNISONE 20MG TABLET PO SCH (08:31)
[2017-03-29] MEDS: AMLODIPINE 10MG TABLET PO SCH (08:33)
[2017-03-29] MEDS: LOSARTAN POTASSIUM 25 MG TABLET PO SCH (08:34)
[2017-03-29] MEDS: MICONAZOLE NITRATE 2% OINT 71GM TOP SCH ×2 (08:34→21:25)
[2017-03-29 09:08] LABS: BG BASE EXCESS 1.3 mmol/L (-2.0-2.0); BG BILEVEL POS AIRWAY PRESSURE 15/5; BG CARBOXYHEMOGLOBIN 0.2 % (0.5-1.5); BG DEOXYHEMOGLOBIN 3.4 % (0.0-5.0); BG FRACTION INSPIRED OXYGEN 35; BG HCO3 ACT 22.8 mmol/L (22.0-26.0); BG METHEMOGLOBIN 0.6 % (0.0-1.5); BG OXYGEN SATURATION 96.6 % (92.0-98.5); BG OXYHEMOGLOBIN 95.8 % (94.0-97.0); BG PCO2 26.9 mmHg (35.0-45.0); BG PH 7.546 (7.350-7.450); BG PO2 88.9 mmHg (75.0-100.0); BG SAMPLE SITE LEFT RADIAL; BG TOTAL HEMOGLOBIN 11.6 g/dL (12.0-18.0); BG VENT MODE MASK - BIPAP
[2017-03-29 13:08] LABS: PLATELET ESTIMATE NORMAL
[2017-03-30] VITALS (12 sets, daily range): BP systolic 97–155; BP diastolic 42–69
[2017-03-30] MEDS: IPRATROPIUM/ALBUTEROL 0.5-3(2.5)MG/3ML NEB INH SCH ×4 (00:56→19:37)
[2017-03-30] MEDS: HYDRALAZINE HCL 25MG TABLET PO SCH ×3 (05:37→22:06)
[2017-03-30 06:34] LABS: BASOPHILS % 0.1 % (0.0-2.0); EOSINOPHILS % 0.3 % (0.0-5.0); HEMOGLOBIN. 10.5 g/dL (12.0-16.0); LYMPHOCYTES % 7.1 % (20.0-50.0); MEAN CORPUSCULAR VOLUME 82.8 fL (81.0-99.0); MEAN PLATELET VOLUME 9.5 fl (7.4-10.4); MONOCYTES % 9.3 % (2.0-8.0); NEUTROPHILS % 83.2 % (40.0-76.0); PLATELET 154 x1000/uL (130-400); RED BLOOD CELL COUNT 3.87 mill/uL (4.2-5.4)
[2017-03-30] MEDS: INSULIN LISPRO 100 UNITS/ML SUBCUT SCH ×4 (08:00→22:07)
[2017-03-30] MEDS: BLOOD SUGAR DIAGNOSTIC STRIP TEST SCH ×4 (08:10→21:00)
[2017-03-30] MEDS ORDERED: POTASSIUM CHLORIDE 20MEQ/PACKET PO SCH (08:45)
[2017-03-30] MEDS: LACTULOSE 20G/30ML UDC PO SCH (09:02)
[2017-03-30] MEDS: FUROSEMIDE 40MG/4ML VIAL IVP SCH (09:02)
[2017-03-30] MEDS: LOSARTAN POTASSIUM 25 MG TABLET PO SCH (09:02)
[2017-03-30] MEDS: PREDNISONE 20MG TABLET PO SCH (09:03)
[2017-03-30] MEDS: MICONAZOLE NITRATE 2% OINT 71GM TOP SCH ×2 (09:04→22:10)
[2017-03-30] MEDS: AMLODIPINE 10MG TABLET PO SCH (09:04)
[2017-03-30 09:28] LABS: BG BASE EXCESS 12.5 mmol/L (-2.0-2.0); BG BILEVEL POS AIRWAY PRESSURE 15/5; BG CARBOXYHEMOGLOBIN 0.3 % (0.5-1.5); BG DEOXYHEMOGLOBIN 3.7 % (0.0-5.0); BG FRACTION INSPIRED OXYGEN 35; BG HCO3 ACT 36.7 mmol/L (22.0-26.0); BG METHEMOGLOBIN 0.5 % (0.0-1.5); BG OXYGEN SATURATION 96.3 % (92.0-98.5); BG OXYHEMOGLOBIN 95.5 % (94.0-97.0); BG PCO2 45.6 mmHg (35.0-45.0); BG PH 7.523 (7.350-7.450); BG PO2 85.4 mmHg (75.0-100.0); BG SAMPLE SITE LEFT RADIAL; BG TOTAL HEMOGLOBIN 11.1 g/dL (12.0-18.0); BG VENT MODE MASK - BIPAP
[2017-03-30] MEDS: ACETAMINOPHEN 325MG TABLET PO PRN (13:56)
[2017-03-31] VITALS (12 sets, daily range): BP systolic 124–169; BP diastolic 40–109
[2017-03-31] MEDS: IPRATROPIUM/ALBUTEROL 0.5-3(2.5)MG/3ML NEB INH SCH ×4 (00:41→21:03)
[2017-03-31] MEDS: ACETAMINOPHEN 325MG TABLET PO PRN ×2 (01:32→11:12)
[2017-03-31] MEDS: HYDRALAZINE HCL 25MG TABLET PO SCH ×3 (06:56→21:34)
[2017-03-31] MEDS: BLOOD SUGAR DIAGNOSTIC STRIP TEST SCH ×4 (08:20→20:51)
[2017-03-31] MEDS: LOSARTAN POTASSIUM 25 MG TABLET PO SCH (08:50)
[2017-03-31] MEDS: LACTULOSE 20G/30ML UDC PO SCH (08:50)
[2017-03-31] MEDS: AMLODIPINE 10MG TABLET PO SCH (08:50)
[2017-03-31] MEDS: FUROSEMIDE 40MG/4ML VIAL IVP SCH (08:50)
[2017-03-31] MEDS: PREDNISONE 20MG TABLET PO SCH (08:50)
[2017-03-31] MEDS: MICONAZOLE NITRATE 2% OINT 71GM TOP SCH ×2 (08:51→20:58)
[2017-03-31] MEDS: INSULIN LISPRO 100 UNITS/ML SUBCUT SCH ×4 (08:52→21:34)
[2017-03-31] MEDS: CLONIDINE 0.1MG TABLET PO PRN (12:46)
[2017-03-31] MEDS ORDERED: HYDROCODONE/ACETAMINOPHEN 5/325MG TABLET PO PRN (13:15)
[2017-03-31] MEDS ORDERED: TRAMADOL 50MG TABLET PO PRN (13:30)
[2017-03-31 17:55] LABS: BG BASE EXCESS 11.9 mmol/L (-2.0-2.0); BG CARBOXYHEMOGLOBIN 0.6 % (0.5-1.5); BG DEOXYHEMOGLOBIN 7.8 % (0.0-5.0); BG METHEMOGLOBIN 0.4 % (0.0-1.5); BG OXYGEN SATURATION 92.1 % (92.0-98.5); BG OXYHEMOGLOBIN 91.2 % (94.0-97.0); BG PCO2 44.8 mmHg (35.0-45.0); BG PH 7.523 (7.350-7.450); BG PO2 64.1 mmHg (75.0-100.0); BG SAMPLE SITE RIGHT RADIAL; BG TOTAL HEMOGLOBIN 12.1 g/dL (12.0-18.0); BG VENT MODE NASAL CANNULA
[2017-03-31 20:23] LABS: INR 1.3
[2017-04-01] VITALS (12 sets, daily range): BP systolic 118–164; BP diastolic 53–91
[2017-04-01] MEDS: IPRATROPIUM/ALBUTEROL 0.5-3(2.5)MG/3ML NEB INH SCH ×4 (00:44→20:22)
[2017-04-01] MEDS: IPRATROPIUM/ALBUTEROL 0.5-3(2.5)MG/3ML NEB INH PRN (04:48)
[2017-04-01] MEDS: HYDRALAZINE HCL 25MG TABLET PO SCH ×3 (06:39→21:25)
[2017-04-01 06:45] LABS: HEMATOCRIT. 33.1 % (36.0-48.0); HEMOGLOBIN. 10.6 g/dL (12.0-16.0); MEAN CORPUSCULAR VOLUME 84.1 fL (81.0-99.0); MEAN PLATELET VOLUME 9.2 fl (7.4-10.4); PLATELET 144 x1000/uL (130-400); RED BLOOD CELL COUNT 3.94 mill/uL (4.2-5.4); RED CELL DISTRIBUTION WIDTH 19.2 % (11.6-14.6)
[2017-04-01] MEDS: INSULIN LISPRO 100 UNITS/ML SUBCUT SCH ×4 (08:00→21:00)
[2017-04-01] MEDS: BLOOD SUGAR DIAGNOSTIC STRIP TEST SCH ×4 (08:15→21:00)
[2017-04-01] MEDS: FUROSEMIDE 40MG/4ML VIAL IVP SCH (09:29)
[2017-04-01] MEDS: LACTULOSE 20G/30ML UDC PO SCH (09:29)
[2017-04-01] MEDS: MICONAZOLE NITRATE 2% OINT 71GM TOP SCH ×2 (09:29→21:19)
[2017-04-01] MEDS: AMLODIPINE 10MG TABLET PO SCH (09:31)
[2017-04-01] MEDS: LOSARTAN POTASSIUM 25 MG TABLET PO SCH (09:32)
[2017-04-01] MEDS ORDERED: SODIUM BICARBONATE 4% (2.4MEQ) 5ML VIAL IV ONE (10:42)
[2017-04-01] MEDS ORDERED: LIDOCAINE HCL 1% 20ML VIAL (Pyxis) INJ ONE (10:42)
[2017-04-01 12:59] LABS: BG BASE EXCESS 10.3 mmol/L (-2.0-2.0); BG BILEVEL POS AIRWAY PRESSURE 15/5; BG CARBOXYHEMOGLOBIN 0.6 % (0.5-1.5); BG DEOXYHEMOGLOBIN 4.9 % (0.0-5.0); BG FRACTION INSPIRED OXYGEN 35; BG HCO3 ACT 34.5 mmol/L (22.0-26.0); BG METHEMOGLOBIN 0.6 % (0.0-1.5); BG OXYHEMOGLOBIN 93.9 % (94.0-97.0); BG PCO2 44.1 mmHg (35.0-45.0); BG PH 7.511 (7.350-7.450); BG PO2 76.9 mmHg (75.0-100.0); BG SAMPLE SITE LEFT RADIAL; BG TOTAL HEMOGLOBIN 12.4 g/dL (12.0-18.0); BG VENT MODE MASK - BIPAP; BG VENT RATE 16 set
[2017-04-01 21:59] LABS: PLATELET ESTIMATE NORMAL
[2017-04-02] VITALS (12 sets, daily range): BP systolic 122–160; BP diastolic 54–87
[2017-04-02] MEDS: IPRATROPIUM/ALBUTEROL 0.5-3(2.5)MG/3ML NEB INH SCH ×4 (02:06→21:19)
[2017-04-02] MEDS: HYDRALAZINE HCL 25MG TABLET PO SCH ×3 (07:06→21:39)
[2017-04-02] MEDS: BLOOD SUGAR DIAGNOSTIC STRIP TEST SCH ×4 (07:30→21:17)
[2017-04-02] MEDS: INSULIN LISPRO 100 UNITS/ML SUBCUT SCH ×4 (08:00→21:39)
[2017-04-02] MEDS: FUROSEMIDE 40MG/4ML VIAL IVP SCH (08:32)
[2017-04-02] MEDS: LOSARTAN POTASSIUM 25 MG TABLET PO SCH (08:32)
[2017-04-02] MEDS: MICONAZOLE NITRATE 2% OINT 71GM TOP SCH ×2 (08:32→21:40)
[2017-04-02] MEDS: LACTULOSE 20G/30ML UDC PO SCH (08:32)
[2017-04-02] MEDS: AMLODIPINE 10MG TABLET PO SCH (08:32)
[2017-04-02 15:55] LABS: BG BASE EXCESS 14.5 mmol/L (-2.0-2.0); BG CARBOXYHEMOGLOBIN 0.5 % (0.5-1.5); BG DEOXYHEMOGLOBIN 7.8 % (0.0-5.0); BG FRACTION INSPIRED OXYGEN 28; BG HCO3 ACT 38.3 mmol/L (22.0-26.0); BG METHEMOGLOBIN 0.5 % (0.0-1.5); BG OXYGEN SATURATION 92.1 % (92.0-98.5); BG OXYHEMOGLOBIN 91.2 % (94.0-97.0); BG PCO2 44.4 mmHg (35.0-45.0); BG PH 7.554 (7.350-7.450); BG PO2 61.5 mmHg (75.0-100.0); BG SAMPLE SITE LEFT RADIAL; BG TOTAL HEMOGLOBIN 10.7 g/dL (12.0-18.0); BG VENT MODE NASAL CANNULA
[2017-04-02] MEDS: CLONIDINE 0.1MG TABLET PO PRN (17:55)
[2017-04-03] VITALS (12 sets, daily range): BP systolic 111–158; BP diastolic 47–72
[2017-04-03] MEDS: IPRATROPIUM/ALBUTEROL 0.5-3(2.5)MG/3ML NEB INH SCH ×4 (00:19→20:08)
[2017-04-03] MEDS: HYDRALAZINE HCL 25MG TABLET PO SCH ×3 (06:18→22:07)
[2017-04-03] MEDS: BLOOD SUGAR DIAGNOSTIC STRIP TEST SCH ×4 (07:30→21:17)
[2017-04-03] MEDS: INSULIN LISPRO 100 UNITS/ML SUBCUT SCH ×4 (08:00→21:16)
[2017-04-03] MEDS: AMLODIPINE 10MG TABLET PO SCH (12:16)
[2017-04-03] MEDS: LACTULOSE 20G/30ML UDC PO SCH (12:16)
[2017-04-03] MEDS: FUROSEMIDE 40MG/4ML VIAL IVP SCH (12:16)
[2017-04-03] MEDS: LOSARTAN POTASSIUM 25 MG TABLET PO SCH (12:16)
[2017-04-04] VITALS (12 sets, daily range): BP systolic 102–138; BP diastolic 48–83
[2017-04-04] MEDS: IPRATROPIUM/ALBUTEROL 0.5-3(2.5)MG/3ML NEB INH SCH ×4 (02:10→20:32)
[2017-04-04] MEDS: HYDRALAZINE HCL 25MG TABLET PO SCH ×3 (06:24→21:43)
[2017-04-04] MEDS: BLOOD SUGAR DIAGNOSTIC STRIP TEST SCH ×4 (07:30→21:43)
[2017-04-04] MEDS: INSULIN LISPRO 100 UNITS/ML SUBCUT SCH ×4 (07:54→21:46)
[2017-04-04] MEDS: LACTULOSE 20G/30ML UDC PO SCH (08:17)
[2017-04-04] MEDS: FUROSEMIDE 40MG/4ML VIAL IVP SCH (08:18)
[2017-04-04] MEDS: LOSARTAN POTASSIUM 25 MG TABLET PO SCH (08:18)
[2017-04-04] MEDS: AMLODIPINE 10MG TABLET PO SCH (08:18)
[2017-04-05] VITALS (12 sets, daily range): BP systolic 97–140; BP diastolic 41–77
[2017-04-05] MEDS: IPRATROPIUM/ALBUTEROL 0.5-3(2.5)MG/3ML NEB INH SCH ×4 (01:12→21:00)
[2017-04-05] MEDS: HYDRALAZINE HCL 25MG TABLET PO SCH ×3 (06:49→21:10)
[2017-04-05] MEDS: INSULIN LISPRO 100 UNITS/ML SUBCUT SCH ×4 (08:00→20:39)
[2017-04-05] MEDS: BLOOD SUGAR DIAGNOSTIC STRIP TEST SCH ×4 (08:04→20:39)
[2017-04-05] MEDS: LOSARTAN POTASSIUM 25 MG TABLET PO SCH (09:00)
[2017-04-05] MEDS: AMLODIPINE 10MG TABLET PO SCH (09:00)
[2017-04-05] MEDS: LACTULOSE 20G/30ML UDC PO SCH (09:00)
[2017-04-05] MEDS: FUROSEMIDE 40MG/4ML VIAL IVP SCH (10:22)
[2017-04-05 11:06] LABS: BG BASE EXCESS 10.6 mmol/L (-2.0-2.0); BG BILEVEL POS AIRWAY PRESSURE ST=15/5; BG CARBOXYHEMOGLOBIN 0.3 % (0.5-1.5); BG DEOXYHEMOGLOBIN 4.7 % (0.0-5.0); BG FRACTION INSPIRED OXYGEN 35; BG HCO3 ACT 34.4 mmol/L (22.0-26.0); BG METHEMOGLOBIN 0.6 % (0.0-1.5); BG OXYGEN SATURATION 95.3 % (92.0-98.5); BG OXYHEMOGLOBIN 94.4 % (94.0-97.0); BG PCO2 42.4 mmHg (35.0-45.0); BG PH 7.527 (7.350-7.450); BG PO2 78.7 mmHg (75.0-100.0); BG PRESSURE SUPPORT 10; BG SAMPLE SITE LEFT RADIAL; BG TOTAL HEMOGLOBIN 10.3 g/dL (12.0-18.0); BG VENT MODE MASK - BIPAP; BG VENT RATE 16 set
[2017-04-06] VITALS (17 sets, daily range): BP systolic 90–123; BP diastolic 30–77
[2017-04-06] MEDS: IPRATROPIUM/ALBUTEROL 0.5-3(2.5)MG/3ML NEB INH SCH ×4 (02:14→20:17)
[2017-04-06] MEDS: HYDRALAZINE HCL 25MG TABLET PO SCH ×3 (05:41→22:00)
[2017-04-06] MEDS: ACETAMINOPHEN 325MG TABLET PO PRN (07:00)
[2017-04-06] MEDS: BLOOD SUGAR DIAGNOSTIC STRIP TEST SCH ×4 (08:23→20:54)
[2017-04-06] MEDS: FUROSEMIDE 40MG/4ML VIAL IVP SCH (08:31)
[2017-04-06] MEDS: LACTULOSE 20G/30ML UDC PO SCH (08:31)
[2017-04-06] MEDS: AMLODIPINE 10MG TABLET PO SCH (08:32)
[2017-04-06] MEDS: LOSARTAN POTASSIUM 25 MG TABLET PO SCH (08:32)
[2017-04-06] MEDS: INSULIN LISPRO 100 UNITS/ML SUBCUT SCH ×4 (08:34→21:03)
[2017-04-06 16:43] LABS: CARBON DIOXIDE 34 mEq/L (21-32); CHLORIDE 102 mEq/L (98-107)
[2017-04-07] VITALS (14 sets, daily range): BP systolic 92–126; BP diastolic 41–64
[2017-04-07] MEDS: ACETAMINOPHEN 325MG TABLET PO PRN ×2 (00:40→21:35)
[2017-04-07] MEDS: IPRATROPIUM/ALBUTEROL 0.5-3(2.5)MG/3ML NEB INH SCH ×4 (00:43→20:29)
[2017-04-07] MEDS: HYDRALAZINE HCL 25MG TABLET PO SCH ×3 (05:40→21:35)
[2017-04-07] MEDS: BLOOD SUGAR DIAGNOSTIC STRIP TEST SCH ×4 (05:54→21:35)
[2017-04-07] MEDS: INSULIN LISPRO 100 UNITS/ML SUBCUT SCH ×4 (05:55→21:41)
[2017-04-07] MEDS: FUROSEMIDE 40MG/4ML VIAL IVP SCH (08:57)
[2017-04-07] MEDS: LOSARTAN POTASSIUM 25 MG TABLET PO SCH (08:57)
[2017-04-07] MEDS: LACTULOSE 20G/30ML UDC PO SCH (08:57)
[2017-04-07] MEDS: AMLODIPINE 10MG TABLET PO SCH (08:57)
[2017-04-07] MEDS: BUDESONIDE 0.5MG/2ML NEB HHN SCH (20:29)
[2017-04-08] VITALS (15 sets, daily range): BP systolic 80–132; BP diastolic 40–114
[2017-04-08] MEDS: IPRATROPIUM/ALBUTEROL 0.5-3(2.5)MG/3ML NEB INH SCH ×4 (01:51→20:30)
[2017-04-08] MEDS: HYDRALAZINE HCL 25MG TABLET PO SCH ×3 (05:35→22:25)
[2017-04-08] MEDS: BLOOD SUGAR DIAGNOSTIC STRIP TEST SCH ×4 (07:30→21:25)
[2017-04-08] MEDS: INSULIN LISPRO 100 UNITS/ML SUBCUT SCH ×4 (08:00→21:25)
[2017-04-08] MEDS: BUDESONIDE 0.5MG/2ML NEB HHN SCH ×2 (08:20→20:30)
[2017-04-08] MEDS: LOSARTAN POTASSIUM 25 MG TABLET PO SCH (09:00)
[2017-04-08] MEDS: AMLODIPINE 10MG TABLET PO SCH (09:00)
[2017-04-08] MEDS: FUROSEMIDE 40MG/4ML VIAL IVP SCH (10:17)
[2017-04-08] MEDS: LACTULOSE 20G/30ML UDC PO SCH (10:17)
[2017-04-08] MEDS: MIDODRINE HCL 2.5MG TABLET PO SCH ×2 (17:00→17:27)
[2017-04-08 20:44] LABS: BG BASE EXCESS 5.1 mmol/L (-2.0-2.0); BG BILEVEL POS AIRWAY PRESSURE 15/5; BG CARBOXYHEMOGLOBIN 0.3 % (0.5-1.5); BG DEOXYHEMOGLOBIN 5.1 % (0.0-5.0); BG FRACTION INSPIRED OXYGEN 35; BG HCO3 ACT 25.8 mmol/L (22.0-26.0); BG METHEMOGLOBIN 0.7 % (0.0-1.5); BG OXYGEN SATURATION 94.8 % (92.0-98.5); BG OXYHEMOGLOBIN 93.9 % (94.0-97.0); BG PCO2 25.9 mmHg (35.0-45.0); BG PH 7.616 (7.350-7.450); BG PO2 69.1 mmHg (75.0-100.0); BG SAMPLE SITE LEFT RADIAL; BG TOTAL HEMOGLOBIN 10.7 g/dL (12.0-18.0); BG VENT MODE MASK - BIPAP; BG VENT RATE 16 set
[2017-04-08] MEDS ORDERED: FUROSEMIDE 40MG/4ML VIAL IVP NR (21:00)
[2017-04-09] VITALS (93 sets, daily range): BP systolic 50–156; BP diastolic 21–71
[2017-04-09] MEDS: HYDRALAZINE HCL 25MG TABLET PO SCH ×3 (06:05→21:01)
[2017-04-09] MEDS: BLOOD SUGAR DIAGNOSTIC STRIP TEST SCH ×4 (07:30→20:48)
[2017-04-09] MEDS: IPRATROPIUM/ALBUTEROL 0.5-3(2.5)MG/3ML NEB INH SCH ×3 (07:49→20:48)
[2017-04-09] MEDS: BUDESONIDE 0.5MG/2ML NEB HHN SCH ×2 (07:50→20:43)
[2017-04-09] MEDS: INSULIN LISPRO 100 UNITS/ML SUBCUT SCH ×3 (08:00→20:48)
[2017-04-09] MEDS: FUROSEMIDE 40MG/4ML VIAL IVP SCH (09:00)
[2017-04-09] MEDS: MIDODRINE HCL 2.5MG TABLET PO SCH ×3 (09:00→15:32)
[2017-04-09] MEDS: LACTULOSE 20G/30ML UDC PO SCH (09:00)
[2017-04-09] MEDS: AMLODIPINE 10MG TABLET PO SCH (09:00)
[2017-04-09] MEDS: LOSARTAN POTASSIUM 25 MG TABLET PO SCH (09:00)
[2017-04-09 11:33] LABS: BG BASE EXCESS 6.2 mmol/L (-2.0-2.0); BG BILEVEL POS AIRWAY PRESSURE 15/5; BG CARBOXYHEMOGLOBIN 0.3 % (0.5-1.5); BG FRACTION INSPIRED OXYGEN 50; BG HCO3 ACT 28.8 mmol/L (22.0-26.0); BG METHEMOGLOBIN 0.7 % (0.0-1.5); BG PCO2 34.2 mmHg (35.0-45.0); BG PH 7.543 (7.350-7.450); BG PO2 114.6 mmHg (75.0-100.0); BG SAMPLE SITE LEFT RADIAL; BG TOTAL HEMOGLOBIN 10.7 g/dL (12.0-18.0); BG VENT MODE MASK - BIPAP; BG VENT RATE 12 set
[2017-04-09] MEDS ORDERED: DOPAMINE 400MG PREMIX 250 ML IV ONE (12:52)
[2017-04-09] MEDS ORDERED: NOREPINEPHRINE 4 MG in DEXT 5% WATER 246 ML IV PRN (13:00)
[2017-04-09] MEDS ORDERED: SODIUM CHLORIDE 0.9% 1,000 ML IV ONE (13:00)
[2017-04-09] MEDS ORDERED: DOPAMINE 400MG PREMIX 250 ML IV PRN ×2 (13:00→14:00)
[2017-04-09] MEDS: PROPOFOL 10MG/ML 100ML 100 ML IV PRN (14:37)
[2017-04-09 15:05] LABS: BG BASE EXCESS 5.5 mmol/L (-2.0-2.0); BG CARBOXYHEMOGLOBIN 0.3 % (0.5-1.5); BG DEOXYHEMOGLOBIN 1.1 % (0.0-5.0); BG FRACTION INSPIRED OXYGEN 75; BG METHEMOGLOBIN 0.8 % (0.0-1.5); BG OXYGEN SATURATION 98.9 % (92.0-98.5); BG OXYHEMOGLOBIN 97.8 % (94.0-97.0); BG PCO2 38.3 mmHg (35.0-45.0); BG PH 7.497 (7.350-7.450); BG PO2 166.3 mmHg (75.0-100.0); BG SAMPLE SITE LEFT RADIAL; BG TIDAL VOLUME(mL) 600 mL; BG TOTAL HEMOGLOBIN 11.4 g/dL (12.0-18.0); BG VENT MODE VENT - A/C; BG VENT RATE 14 set
[2017-04-09 15:49] LABS: HEMATOCRIT. 32.4 % (36.0-48.0); HEMOGLOBIN. 10.2 g/dL (12.0-16.0); MEAN CORPUSCULAR HEMOGLOBIN 26.5 pg (28.0-32.0); MEAN CORPUSCULAR VOLUME 84.3 fL (81.0-99.0); MEAN PLATELET VOLUME 11.2 fl (7.4-10.4); PLATELET 198 x1000/uL (130-400); RED BLOOD CELL COUNT 3.84 mill/uL (4.2-5.4); RED CELL DISTRIBUTION WIDTH 20.7 % (11.6-14.6)
[2017-04-09 15:53] LABS: CHLORIDE 104 mEq/L (98-107)
[2017-04-09 15:59] LABS: AMMONIA 99 uMol/L (<32)
[2017-04-09 16:02] LABS: CARBON DIOXIDE 28 mEq/L (21-32)
[2017-04-09 16:38] LABS: ATYPICAL LYMPHOCYTES 1; PLATELET ESTIMATE NORMAL
[2017-04-09] MEDS: PHENYLEPHRINE 40 MG in DEXT 5% WATER 246 ML IV PRN ×2 (16:58→22:51)
[2017-04-09 19:34] LABS: CLARITY URINE TURBID (CLEAR); COLOR URINE DARK YELLOW (YELLOW); KETONES URINE NEGATIVE (NEGATIVE); LEUKOCYTE ESTERASE URINE 3+ (NEGATIVE); NITRITE URINE NEGATIVE (NEGATIVE); OCCULT BLOOD URINE 3+ (NEGATIVE); PROTEIN URINE TRACE (NEGATIVE); SPECIFIC GRAVITY URINE 1.016 (1.005-1.030)
[2017-04-09] MEDS: DEXT 5%/0.45% NACL 1000ML 1,000 ML IV SCH (20:31)
[2017-04-09] MEDS: ENOXAPARIN 30MG/0.3ML SYR SUBCUT SCH (20:48)
[2017-04-10] VITALS (75 sets, daily range): BP systolic 80–118; BP diastolic 22–104
[2017-04-10] MEDS: PROPOFOL 10MG/ML 100ML 100 ML IV PRN (00:52)
[2017-04-10] MEDS: IPRATROPIUM/ALBUTEROL 0.5-3(2.5)MG/3ML NEB INH SCH ×4 (01:07→20:20)
[2017-04-10] MEDS: NOREPINEPHRINE 16 MG in DEXT 5% WATER 234 ML IV PRN ×2 (04:22→16:43)
[2017-04-10] MEDS: HYDRALAZINE HCL 25MG TABLET PO SCH ×3 (05:28→21:13)
[2017-04-10] MEDS: BLOOD SUGAR DIAGNOSTIC STRIP TEST SCH ×4 (06:30→20:30)
[2017-04-10] MEDS ORDERED: ETOMIDATE 2MG/ML 10ML VIAL IV ONE (07:00)
[2017-04-10] MEDS: INSULIN LISPRO 100 UNITS/ML SUBCUT SCH ×4 (07:00→21:00)
[2017-04-10] MEDS ORDERED: SUCCINYLCHOLINE CHLORIDE 200MG/10ML VIAL IV ONE (07:00)
[2017-04-10 07:04] LABS: HEMATOCRIT. 31.2 % (36.0-48.0); HEMOGLOBIN. 9.8 g/dL (12.0-16.0); MEAN CORPUSCULAR HEMOGLOBIN 26.1 pg (28.0-32.0); MEAN CORPUSCULAR VOLUME 83.6 fL (81.0-99.0); MEAN PLATELET VOLUME 10.7 fl (7.4-10.4); PLATELET 172 x1000/uL (130-400); RED BLOOD CELL COUNT 3.74 mill/uL (4.2-5.4); RED CELL DISTRIBUTION WIDTH 20.8 % (11.6-14.6)
[2017-04-10 08:00] LABS: BG BASE EXCESS 5.1 mmol/L (-2.0-2.0); BG CARBOXYHEMOGLOBIN 0.3 % (0.5-1.5); BG DEOXYHEMOGLOBIN 3.6 % (0.0-5.0); BG HCO3 ACT 27.1 mmol/L (22.0-26.0); BG METHEMOGLOBIN 0.8 % (0.0-1.5); BG OXYGEN SATURATION 96.4 % (92.0-98.5); BG OXYHEMOGLOBIN 95.3 % (94.0-97.0); BG PCO2 30.5 mmHg (35.0-45.0); BG PH 7.566 (7.350-7.450); BG PO2 88.7 mmHg (75.0-100.0); BG SAMPLE SITE RIGHT RADIAL; BG TIDAL VOLUME(mL) 600 mL; BG TOTAL HEMOGLOBIN 9.9 g/dL (12.0-18.0); BG VENT MODE VENT - A/C; BG VENT RATE 14 set
[2017-04-10] MEDS: BUDESONIDE 0.5MG/2ML NEB HHN SCH (08:19)
[2017-04-10] MEDS: LOSARTAN POTASSIUM 25 MG TABLET PO SCH (09:00)
[2017-04-10] MEDS: AMLODIPINE 10MG TABLET PO SCH (09:00)
[2017-04-10] MEDS: PANTOPRAZOLE SODIUM 40 MG/VIAL IV SCH (09:29)
[2017-04-10] MEDS: FUROSEMIDE 40MG/4ML VIAL IVP SCH (09:30)
[2017-04-10] MEDS: ACETAMINOPHEN 325MG TABLET PO PRN ×2 (09:30→23:01)
[2017-04-10] MEDS: MIDODRINE HCL 2.5MG TABLET PO SCH ×3 (09:30→16:28)
[2017-04-10] MEDS ORDERED: MORPHINE SULFATE 4 MG/ML CPJ (NOT FOR IM USE) IV PRN (09:30)
[2017-04-10] MEDS ORDERED: LORAZEPAM 2MG/ML CPJ IV PRN (09:30)
[2017-04-10] MEDS: ENOXAPARIN 30MG/0.3ML SYR SUBCUT SCH (09:30)
[2017-04-10] MEDS: PIPERACILLIN/TAZ 2.25G PREMIX 50 ML IV SCH ×2 (12:20→20:30)
[2017-04-10] MEDS: DEXT 5%/0.45% NACL 1000ML 1,000 ML IV SCH (12:20)
[2017-04-10 12:39] LABS: PLATELET ESTIMATE NORMAL
[2017-04-10] MEDS ORDERED: VANCOMYCIN 2,000 MG in DEXT 5% WATER 500 ML IV NR (13:00)
[2017-04-10] MEDS: LACTULOSE 20G/30ML UDC PO SCH ×2 (13:56→23:03)
[2017-04-10] MEDS ORDERED: AMIKACIN XX SCH (14:00)
[2017-04-10] MEDS ORDERED: LIDOCAINE HCL 1% 20ML VIAL (Pyxis) INJ INJ SCH (14:30)
[2017-04-10] MEDS: DEXTROSE 5% WATER 1,000 ML IV SCH (16:28)
[2017-04-10] MEDS ORDERED: AMIKACIN SULFATE 600 MG in SODIUM CHLORIDE 0.9% 100 ML IV NR (18:00)
[2017-04-10] MEDS: SODIUM HYPOCHLORITE SOLUTION (0.5%)FULL STRENGTH TOP SCH (21:13)
[2017-04-11] VITALS (109 sets, daily range): BP systolic 35–177; BP diastolic 19–76
[2017-04-11] MEDS: NOREPINEPHRINE 16 MG in DEXT 5% WATER 234 ML IV PRN ×3 (01:38→20:11)
[2017-04-11] MEDS: ACETYLCYSTEINE 200MG/ML 20% VIAL 4ML INH SCH ×3 (02:39→14:23)
[2017-04-11] MEDS: IPRATROPIUM/ALBUTEROL 0.5-3(2.5)MG/3ML NEB INH SCH ×4 (02:39→19:51)
[2017-04-11] MEDS ORDERED: PHENYTOIN SODIUM 100MG/2ML VIAL IV ONE (02:45)
[2017-04-11] MEDS ORDERED: PHENYTOIN SODIUM 1,000 MG in SODIUM CHLORIDE 0.9% 250 ML IV SCH (02:45)
[2017-04-11] MEDS: PROPOFOL 10MG/ML 100ML 100 ML IV PRN ×6 (02:50→21:44)
[2017-04-11] MEDS: PIPERACILLIN/TAZ 2.25G PREMIX 50 ML IV SCH ×2 (03:11→11:41)
[2017-04-11 05:29] LABS: HEMATOCRIT. 32.8 % (36.0-48.0); MEAN CORPUSCULAR HEMOGLOBIN 25.7 pg (28.0-32.0); MEAN CORPUSCULAR VOLUME 83.9 fL (81.0-99.0); MEAN PLATELET VOLUME 10.6 fl (7.4-10.4); PLATELET 183 x1000/uL (130-400); RED BLOOD CELL COUNT 3.91 mill/uL (4.2-5.4); RED CELL DISTRIBUTION WIDTH 20.9 % (11.6-14.6)
[2017-04-11] MEDS: BLOOD SUGAR DIAGNOSTIC STRIP TEST SCH ×4 (05:53→21:40)
[2017-04-11] MEDS: HYDRALAZINE HCL 25MG TABLET PO SCH ×3 (05:53→20:12)
[2017-04-11] MEDS: LACTULOSE 20G/30ML UDC PO SCH (06:20)
[2017-04-11] MEDS: INSULIN LISPRO 100 UNITS/ML SUBCUT SCH ×4 (06:21→21:00)
[2017-04-11] MEDS: PHENYLEPHRINE 40 MG in DEXT 5% WATER 246 ML IV PRN ×3 (06:22→21:39)
[2017-04-11 06:27] LABS: AMMONIA 228 uMol/L (<32)
[2017-04-11] MEDS: AMLODIPINE 10MG TABLET PO SCH (09:00)
[2017-04-11] MEDS ORDERED: LORAZEPAM 2MG/ML CPJ IV ONE (09:14)
[2017-04-11] MEDS ORDERED: LEVETIRACETAM 500 MG in SODIUM CHLORIDE 0.9% 100 ML IV SCH (09:15)
[2017-04-11] MEDS: PANTOPRAZOLE SODIUM 40 MG/VIAL IV SCH (09:23)
[2017-04-11] MEDS: FUROSEMIDE 40MG/4ML VIAL IVP SCH (09:24)
[2017-04-11] MEDS: ENOXAPARIN 40MG/0.4ML SYR SUBCUT SCH (09:25)
[2017-04-11] MEDS: SODIUM HYPOCHLORITE SOLUTION (0.5%)FULL STRENGTH TOP SCH (09:25)
[2017-04-11] MEDS: MIDODRINE HCL 2.5MG TABLET PO SCH ×3 (09:25→17:06)
[2017-04-11 09:29] LABS: BG BASE EXCESS 0.5 mmol/L (-2.0-2.0); BG CARBOXYHEMOGLOBIN 0.3 % (0.5-1.5); BG DEOXYHEMOGLOBIN 2.5 % (0.0-5.0); BG FRACTION INSPIRED OXYGEN 40; BG HCO3 ACT 22.2 mmol/L (22.0-26.0); BG METHEMOGLOBIN 0.8 % (0.0-1.5); BG OXYGEN SATURATION 97.5 % (92.0-98.5); BG OXYHEMOGLOBIN 96.4 % (94.0-97.0); BG PH 7.533 (7.350-7.450); BG PO2 102.2 mmHg (75.0-100.0); BG SAMPLE SITE RIGHT RADIAL; BG TIDAL VOLUME(mL) 600 mL; BG TOTAL HEMOGLOBIN 11.6 g/dL (12.0-18.0); BG VENT MODE VENT - A/C; BG VENT RATE 12 set
[2017-04-11] MEDS: LEVETIRACETAM 500MG PREMIX 100 ML IV SCH ×2 (11:02→20:17)
[2017-04-11 11:40] LABS: NUCLEATED RED BLOOD CELLS 1 /100 WBC; PLATELET ESTIMATE NORMAL
[2017-04-11] MEDS: LACTULOSE 20G/30ML UDC NG SCH ×2 (13:33→21:32)
[2017-04-11] MEDS: PHENYTOIN SODIUM 100MG/2ML VIAL IV SCH ×2 (13:33→21:32)
[2017-04-11] MEDS ORDERED: MEROPENEM 1000MG in NORMAL SALINE 100ML IV SCH (14:00)
[2017-04-11] MEDS: PIPERACILLIN/TAZ 3.375G PREMIX 50 ML IV SCH (17:06)
[2017-04-11] MEDS ORDERED: PIPERACILLIN/TAZ 2.25G PREMIX 50 ML IV SCH (18:00)
[2017-04-11] MEDS: DEXTROSE 5% WATER 1,000 ML IV SCH (20:10)
[2017-04-12] VITALS (107 sets, daily range): BP systolic 57–130; BP diastolic 30–79
[2017-04-12] MEDS: PIPERACILLIN/TAZ 3.375G PREMIX 50 ML IV SCH ×3 (01:19→17:54)
[2017-04-12] MEDS: PROPOFOL 10MG/ML 100ML 100 ML IV PRN ×4 (01:26→18:52)
[2017-04-12] MEDS: LORAZEPAM 2MG/ML CPJ IV PRN ×3 (01:27→13:16)
[2017-04-12] MEDS: FLUCONAZOLE 200 MG/100ML BAG 100 ML IV SCH (01:27)
[2017-04-12] MEDS: IPRATROPIUM/ALBUTEROL 0.5-3(2.5)MG/3ML NEB INH SCH ×3 (01:55→19:47)
[2017-04-12] MEDS: ACETYLCYSTEINE 100MG/ML 10% VIAL 4ML INH SCH ×2 (01:56→16:12)
[2017-04-12] MEDS: PHENYLEPHRINE 40 MG in DEXT 5% WATER 246 ML IV PRN (01:59)
[2017-04-12] MEDS: NOREPINEPHRINE 16 MG in DEXT 5% WATER 234 ML IV PRN ×3 (05:18→14:03)
[2017-04-12] MEDS: PHENYTOIN SODIUM 100MG/2ML VIAL IV SCH ×3 (05:23→21:12)
[2017-04-12] MEDS: LACTULOSE 20G/30ML UDC NG SCH ×3 (05:23→21:09)
[2017-04-12] MEDS: HYDRALAZINE HCL 25MG TABLET PO SCH ×3 (05:26→21:12)
[2017-04-12] MEDS: BLOOD SUGAR DIAGNOSTIC STRIP TEST SCH ×4 (06:30→21:00)
[2017-04-12] MEDS: INSULIN LISPRO 100 UNITS/ML SUBCUT SCH ×4 (07:00→21:00)
[2017-04-12] MEDS: PANTOPRAZOLE SODIUM 40 MG/VIAL IV SCH (08:39)
[2017-04-12] MEDS: LEVETIRACETAM 500MG PREMIX 100 ML IV SCH ×2 (08:39→21:08)
[2017-04-12] MEDS: FUROSEMIDE 40MG/4ML VIAL IVP SCH (08:39)
[2017-04-12] MEDS: AMLODIPINE 10MG TABLET PO SCH (08:40)
[2017-04-12] MEDS: ENOXAPARIN 40MG/0.4ML SYR SUBCUT SCH (08:40)
[2017-04-12] MEDS: SODIUM HYPOCHLORITE SOLUTION (0.5%)FULL STRENGTH TOP SCH (08:40)
[2017-04-12] MEDS: MIDODRINE HCL 2.5MG TABLET PO SCH ×3 (08:40→17:00)
[2017-04-12 08:47] LABS: BG BASE EXCESS -4.1 mmol/L (-2.0-2.0); BG CARBOXYHEMOGLOBIN 0.2 % (0.5-1.5); BG DEOXYHEMOGLOBIN 6.9 % (0.0-5.0); BG FRACTION INSPIRED OXYGEN 40; BG HCO3 ACT 18.9 mmol/L (22.0-26.0); BG METHEMOGLOBIN 0.3 % (0.0-1.5); BG OXYGEN SATURATION 93.1 % (92.0-98.5); BG OXYHEMOGLOBIN 92.6 % (94.0-97.0); BG PCO2 28.6 mmHg (35.0-45.0); BG PH 7.439 (7.350-7.450); BG PO2 67.5 mmHg (75.0-100.0); BG SAMPLE SITE RIGHT RADIAL; BG TIDAL VOLUME(mL) 600 mL; BG TOTAL HEMOGLOBIN 11.4 g/dL (12.0-18.0); BG VENT MODE VENT - A/C; BG VENT RATE 12 set
[2017-04-12] MEDS: PHENYLEPHRINE 40 MG in SODIUM CHLORIDE 0.9% 246 ML IV PRN ×4 (10:08→22:01)
[2017-04-12] MEDS: IPRATROPIUM/ALBUTEROL 0.5-3(2.5)MG/3ML NEB INH PRN ×2 (12:14→16:12)
[2017-04-12] MEDS ORDERED: PHENYTOIN SODIUM 500 MG in SODIUM CHLORIDE 0.9% 50 ML IV NR (15:00)
[2017-04-12] MEDS ORDERED: DOPAMINE 800MG PREMIX 250 ML IV PRN (19:30)
[2017-04-12] MEDS ORDERED: SODIUM CHLORIDE 0.9% 1,000 ML IV SCH (19:45)
[2017-04-12] MEDS: DEXTROSE 5% WATER 1,000 ML IV SCH (19:51)
[2017-04-12] MEDS: VASOPRESSIN 10 UNIT in SODIUM CHLORIDE 0.9% 99.5 ML IV PRN (20:46)
[2017-04-12] MEDS ORDERED: DEXTROSE 5% WATER 1,000 ML IV SCH (22:00)
[2017-04-12] MEDS: NOREPINEPHRINE 16 MG in SODIUM CHLORIDE 0.9% 234 ML IV PRN (22:02)
[2017-04-13] VITALS (46 sets, daily range): BP systolic 78–110; BP diastolic 29–53
[2017-04-13] MEDS: VASOPRESSIN 10 UNIT in SODIUM CHLORIDE 0.9% 99.5 ML IV PRN ×2 (00:36→12:07)
[2017-04-13] MEDS: FLUCONAZOLE 200 MG/100ML BAG 100 ML IV SCH (00:37)
[2017-04-13] MEDS: PIPERACILLIN/TAZ 3.375G PREMIX 50 ML IV SCH ×2 (01:26→10:19)
[2017-04-13] MEDS: DEXTROSE 50% WATER 50ML SYRINGE IV PRN ×2 (01:27→05:49)
[2017-04-13] MEDS: ACETYLCYSTEINE 100MG/ML 10% VIAL 4ML INH SCH (01:47)
[2017-04-13] MEDS: IPRATROPIUM/ALBUTEROL 0.5-3(2.5)MG/3ML NEB INH SCH ×3 (01:47→09:08)
[2017-04-13] MEDS: PHENYLEPHRINE 40 MG in SODIUM CHLORIDE 0.9% 246 ML IV PRN ×3 (02:03→13:32)
[2017-04-13 05:19] LABS: HEMATOCRIT. 32.6 % (36.0-48.0); HEMOGLOBIN. 8.7 g/dL (12.0-16.0); MEAN CORPUSCULAR HEMOGLOBIN 25.8 pg (28.0-32.0); MEAN CORPUSCULAR VOLUME 96.7 fL (81.0-99.0); MEAN PLATELET VOLUME 11.8 fl (7.4-10.4); PLATELET 109 x1000/uL (130-400); RED BLOOD CELL COUNT 3.38 mill/uL (4.2-5.4); RED CELL DISTRIBUTION WIDTH 21.5 % (11.6-14.6)
[2017-04-13] MEDS: LACTULOSE 20G/30ML UDC NG SCH ×2 (05:50→13:59)
[2017-04-13] MEDS: BLOOD SUGAR DIAGNOSTIC STRIP TEST SCH ×2 (05:50→12:08)
[2017-04-13] MEDS: HYDRALAZINE HCL 25MG TABLET PO SCH ×2 (05:50→13:58)
[2017-04-13] MEDS: INSULIN LISPRO 100 UNITS/ML SUBCUT SCH ×2 (05:51→12:00)
[2017-04-13] MEDS: NOREPINEPHRINE 16 MG in SODIUM CHLORIDE 0.9% 234 ML IV PRN (07:27)
[2017-04-13] MEDS: AMLODIPINE 10MG TABLET PO SCH (09:00)
[2017-04-13] MEDS: FUROSEMIDE 40MG/4ML VIAL IVP SCH (09:00)
[2017-04-13] MEDS ORDERED: SODIUM BICARBONATE 8.4% 1 MEQ/ML 50ML SYR IV NR (10:00)
[2017-04-13] MEDS ORDERED: INSULIN REGULAR (HUMULIN R) 300UNITS/3ML IV NR (10:00)
[2017-04-13] MEDS ORDERED: DEXTROSE 50% WATER 50ML SYRINGE IV NR (10:00)
[2017-04-13] MEDS: PANTOPRAZOLE SODIUM 40 MG/VIAL IV SCH (10:20)
[2017-04-13] MEDS: PHENYTOIN SODIUM 100MG/2ML VIAL IV SCH (10:20)
[2017-04-13] MEDS: ENOXAPARIN 40MG/0.4ML SYR SUBCUT SCH (10:21)
[2017-04-13] MEDS: MIDODRINE HCL 2.5MG TABLET PO SCH ×2 (10:21→12:10)
[2017-04-13] MEDS: SODIUM HYPOCHLORITE SOLUTION (0.5%)FULL STRENGTH TOP SCH (10:22)
[2017-04-13] MEDS: LEVETIRACETAM 500MG PREMIX 100 ML IV SCH (10:51)
[2017-04-13] MEDS ORDERED: CALCIUM CHLORIDE IV NR (11:00)
[2017-04-13] MEDS ORDERED: SODIUM CHLORIDE 0.9% IV NR (11:00)
[2017-04-13] MEDS ORDERED: VANCOMYCIN 1 G PREMIX 200 ML IV SCH (14:00)
[2017-04-13 14:36] LABS: NUCLEATED RED BLOOD CELLS 3 /100 WBC; PLATELET ESTIMATE DECREASED
[2017-04-13] MEDS ORDERED: MORPHINE SULFATE 250 MG in DEXT 5% WATER 240 ML IV PRN (15:00)
[2017-04-13] MEDS ORDERED: MORPHINE SULFATE 100 MG in DEXT 5% WATER 90 ML IV PRN (15:00)
[2017-04-13] MEDS ORDERED: HALOPERIDOL LACTATE 5MG/ML VIAL IM PRN (15:00)
[2017-04-13] MEDS ORDERED: LORAZEPAM 2MG/ML CPJ IV PRN (15:00)
[2017-04-13] MEDS ORDERED: VANCOMYCIN 1,500 MG in SODIUM CHLORIDE 0.9% 250 ML IV NR (21:00)
== END 2017-04-13 20:21 | disposition expired | DRG 720 ==
LOC: ER 17:02 → EDBEDREQ 18:08 → 5EST 19:46 → EDBEDREQTM 19:53 → EDBEDREQ 19:53 → ENRESERV 20:05 → SUPCPDRO 20:23 → MICUNO 04-09 12:38
PROVIDERS: ADMIT Hospitalist; ATTEND Hospitalist
PROC: 5A09457 Assistance with Respiratory Ventilation, 24-96 Consecutive Hours, Continuous Positive Airway Pressure (ICD-10-PCS; 2017-03-17)
PROC: 02HV33Z Insertion of Infusion Device into Superior Vena Cava, Percutaneous Approach (ICD-10-PCS; 2017-03-19)
PROC: B548ZZA Ultrasonography of Superior Vena Cava, Guidance (ICD-10-PCS; 2017-03-19)
PROC: 0W9B3ZZ Drainage of Left Pleural Cavity, Percutaneous Approach (ICD-10-PCS; 2017-03-20)
PROC: 5A09357 Assistance with Respiratory Ventilation, Less than 24 Consecutive Hours, Continuous Positive Airway Pressure (ICD-10-PCS; 2017-03-20)
PROC: 5A09357 Assistance with Respiratory Ventilation, Less than 24 Consecutive Hours, Continuous Positive Airway Pressure (ICD-10-PCS; 2017-03-21)
PROC: 5A09357 Assistance with Respiratory Ventilation, Less than 24 Consecutive Hours, Continuous Positive Airway Pressure (ICD-10-PCS; 2017-03-22)
PROC: 5A09357 Assistance with Respiratory Ventilation, Less than 24 Consecutive Hours, Continuous Positive Airway Pressure (ICD-10-PCS; 2017-03-23)
PROC: 5A09357 Assistance with Respiratory Ventilation, Less than 24 Consecutive Hours, Continuous Positive Airway Pressure (ICD-10-PCS; 2017-03-25)
PROC: 5A09357 Assistance with Respiratory Ventilation, Less than 24 Consecutive Hours, Continuous Positive Airway Pressure (ICD-10-PCS; 2017-03-26)
PROC: 5A09357 Assistance with Respiratory Ventilation, Less than 24 Consecutive Hours, Continuous Positive Airway Pressure (ICD-10-PCS; 2017-03-27)
PROC: 5A09357 Assistance with Respiratory Ventilation, Less than 24 Consecutive Hours, Continuous Positive Airway Pressure (ICD-10-PCS; 2017-03-28)
PROC: 5A09357 Assistance with Respiratory Ventilation, Less than 24 Consecutive Hours, Continuous Positive Airway Pressure (ICD-10-PCS; 2017-03-29)
PROC: 5A09357 Assistance with Respiratory Ventilation, Less than 24 Consecutive Hours, Continuous Positive Airway Pressure (ICD-10-PCS; 2017-03-30)
PROC: 5A09457 Assistance with Respiratory Ventilation, 24-96 Consecutive Hours, Continuous Positive Airway Pressure (ICD-10-PCS; 2017-03-31)
PROC: 0W993ZZ Drainage of Right Pleural Cavity, Percutaneous Approach (ICD-10-PCS; 2017-04-01)
PROC: 5A09357 Assistance with Respiratory Ventilation, Less than 24 Consecutive Hours, Continuous Positive Airway Pressure (ICD-10-PCS; 2017-04-04)
PROC: 5A09457 Assistance with Respiratory Ventilation, 24-96 Consecutive Hours, Continuous Positive Airway Pressure (ICD-10-PCS; 2017-04-05)
PROC: 5A09457 Assistance with Respiratory Ventilation, 24-96 Consecutive Hours, Continuous Positive Airway Pressure (ICD-10-PCS; 2017-04-07)
PROC: 0BH17EZ Insertion of Endotracheal Airway into Trachea, Via Natural or Artificial Opening (ICD-10-PCS; principal; 2017-04-09)
PROC: 5A1955Z Respiratory Ventilation, Greater than 96 Consecutive Hours (ICD-10-PCS; 2017-04-09)
DX: A41.02 Sepsis due to Methicillin resistant Staphylococcus aureus (principal); N17.0 Acute kidney failure with tubular necrosis; J96.21 Acute and chronic respiratory failure with hypoxia; R65.21 Severe sepsis with septic shock; J90 Pleural effusion, not elsewhere classified; G93.40 Encephalopathy, unspecified; J18.9 Pneumonia, unspecified organism; I50.33 Acute on chronic diastolic (congestive) heart failure; Z99.11 Dependence on respirator [ventilator] status; E44.0 Moderate protein-calorie malnutrition; E72.20 Disorder of urea cycle metabolism, unspecified; J44.1 Chronic obstructive pulmonary disease with (acute) exacerbation; E87.2 Acidosis; D68.9 Coagulation defect, unspecified; E66.2 Morbid (severe) obesity with alveolar hypoventilation; E87.70 Fluid overload, unspecified; D64.9 Anemia, unspecified; N39.0 Urinary tract infection, site not specified; E11.9 Type 2 diabetes mellitus without complications; E78.1 Pure hyperglyceridemia; E87.5 Hyperkalemia; G40.909 Epilepsy, unspecified, not intractable, without status epilepticus; L02.411 Cutaneous abscess of right axilla; L89.90 Pressure ulcer of unspecified site, unspecified stage; R47.01 Aphasia; W05.0XXA Fall from non-moving wheelchair, initial encounter; B96.4 Proteus (mirabilis) (morganii) as the cause of diseases classified elsewhere; B19.20 Unspecified viral hepatitis C without hepatic coma; J44.0 Chronic obstructive pulmonary disease with (acute) lower respiratory infection; I11.0 Hypertensive heart disease with heart failure; Y95 Nosocomial condition; Z66 Do not resuscitate; Z99.3 Dependence on wheelchair; Z88.5 Allergy status to narcotic agent; Z87.440 Personal history of urinary (tract) infections; Z86.718 Personal history of other venous thrombosis and embolism; Z68.42 Body mass index [BMI] 45.0-49.9, adult; Z71.6 Tobacco abuse counseling; Z79.899 Other long term (current) drug therapy; Y93.89 Activity, other specified; Y92.89 Other specified places as the place of occurrence of the external cause; Y99.8 Other external cause status
CPT/HCPCS: 32555; 36415; 36569; 36600; 70450; 71010; 71045; 71250; 76770; 76881; 76937; 80048; 80053; 80185; 80202; 81001; 82040; 82140; 82375; 82550; 82553; 82805; 82945; 82962; 83605; 83615; 83690; 83880; 84157; 84478; 84484; 85025; 85610; 86705; 86709; 86803; 87040; 87070; 87077; 87086; 87106; 87186; 87205; 87340; 87804; 88108; 88312; 89050; 93005; 93308; 93970; 94002; 94003; 94640; 94660; 96365; 96367; 96375; 97162; 97167; 99291; A6261; C1725; C9113; J0278; J0330; J1165; J1265; J1450; J1650; J1815; J1940; J1953; J1956; J2060; J2185; J2270; J2370; J2405; J2543; J2704; J2920; J2930; J3370; J3475; J3490; J7030; J7040; J7050; J7060; J7070; J7512; J7608; J7611; J7620; J7626; A4315